=== PATIENT | female | born 1940 | race Caucasian/White ===

== ENCOUNTER 2018-09-15 16:36 | Emergency (ER) | payer OTHER ==
--- OUTSIDE RECORDS SUMMARY | 2018-09-15 16:39 | XMS REPORT | Clinical Summary ---
:1940 Author Organization [facility] Address [address] [place] [address] Care Team Providers Name Role Phone Ez Moreno MD Primary Care Provider Allergies Active Allergy Reactions Severity Noted Date Comments No Known Drug Allergies 01/01/2016 Medications Medication Sig Dispensed Refills Start Date End Date Status FOLIC 1 po qd 0 Active ACID/MULTIVIT-MIN/ LUTEIN (CENTRUM SILVER ORAL) VIT A/VIT C/VIT bid 0 Active E/ZINC/COPPER (PRESERVISION AREDS ORAL) FLUZONE HIGH-DOSE Inject 1 Dose 0 12/09/2015 Active 2016-17, PF, into the vaccine shoulder, thigh, or buttocks Once PRN. TO BE ADMINISTERED BY PHARMACIST FOR IMMUNIZATION levothyroxine Take 50 mcg by 0 10/08/2017 Active (SYNTHROID, mouth daily. LEVOXYL) 50 mcg tablet donepezil Take 1 tablet (10 90 tablet 2 02/27/2018 Active (ARICEPT) 10 MG mg total) by tabletIndications: mouth every Late onset evening. Alzheimer's disease without behavioral disturbance turmeric (CURCUMIN Take 599 mg by 0 Active MISC) mouth daily. propranolol Take 1 tablet (10 90 tablet 7 05/25/2018 05/25/19 Active (INDERAL) 10 MG mg total) by 20 tabletIndications: mouth take as Late onset directed (Half a Alzheimer's tablet in the disease with morning. Can have behavioral another half in disturbance the afternoon if needed.). memantine TAKE 1 TABLET (5 180 tablet 1 06/30/2018 Active (NAMENDA) 5 MG MG TOTAL) BY tablet MOUTH 2 (TWO) TIMES A DAY. memantine Take 1 tablet (5 180 tablet 1 04/24/2017 12/30/19 Discontinued (NAMENDA) 5 MG mg total) by 18 tablet mouth 2 (two) times a day. donepezil TAKE 1 TABLET (10 90 tablet 2 06/05/2017 02/26/20 Discontinued (ARICEPT) 10 MG MG TOTAL) BY 18 tabletIndications: MOUTH EVERY Late onset EVENING. Alzheimer's disease without behavioral disturbance memantine TAKE 1 TABLET (5 180 tablet 1 01/02/2018 06/30/19 Discontinued (NAMENDA) 5 MG MG TOTAL) BY 19 tablet MOUTH 2 (TWO) TIMES A DAY. 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 (Primary Dx) 05/11/2018 Telephone Denise Nunez RN 02/25/2018 Refill Neurology Denise Nunez Late onset Alzheimer's RN disease without behavioral disturbance 12/29/2017 Refill Neurology Eric Singleton MD 10/20/2017 Office Visit Neurology Eric Singleton Late onset Alzheimer 's MD disease without behavioral disturbance (Primary Dx) after 09/14/2017 Family History Medical History Relation Name Comments Dementia Father Alzheimer's disease Maternal Grandmother Stroke Mother Alzheimer's disease Paternal Aunt Relation Name Status Comments Father (Age 91) Maternal Grandmother Mother (Age 90) Paternal Aunt Social History Tobacco Use Types Packs/Day Years Used Date Former Smoker Smokeless Tobacco: Never Used Alcohol Use Drinks/Week oz/Week Comments Yes 3 glasses of wine per day(goblets) Sex Assigned at Date Recorded Not on file Job Start Date Occupation Industry Not on file Not on file Not on file Travel History Travel Start Travel End No recent travel history available. Last Filed Vital Signs Vital Sign Reading Time Taken Blood Pressure 135/78 05/25/2018 8:23 AM CDT Pulse 71 05/25/2018 8:23 AM CDT Temperature - - Respiratory Rate 18 10/20/2017 9:36 AM CDT Oxygen Saturation - - Inhaled Oxygen Concentration - - Weight 44.9 kg (98 lb 14.4 oz) 05/25/2018 8:23 AM CDT Height 147.3 cm (4' 10") 05/25/2018 8:23 AM CDT Body Mass Index 20.67 05/25/2018 8:23 AM CDT Plan of Treatment Date Type Specialty Care Team Description 05/31/2019 Office Visit Neurology Eric Singleton MD [address] [facility] [address] [place] [address] Health Maintenance Due Date Last Done Comments SHINGLES VACCINES (#1) 1989 65+ PNEUMOCOCCAL VACCINE (1 of 2 - PCV13) 2004 INFLUENZA VACCINE 10/08/2018 11/03/2014, 11/22/2013 Results Not on fileafter 09/14/2017 [phone] [id number] (Work) Advance Directives Patient has advance care planning documents on file. For more information, please contact:Aron Gee[address] [place] [address]
[2018-09-15] MEDS ORDERED: LIDOCAINE VISCOUS 2% SOLN 15 ML UDC ONE (17:23)
[2018-09-15] MEDS ORDERED: TETANUS & DIPHTHERIA TOX,ADULT 0.5 ML VIAL ONE (17:53)
[2018-09-15] MEDS ORDERED: HYDROCODONE/APAP 5/325 MG TAB ONE (17:53)
--- NOTE | 2018-09-15 19:03 | EDPHYS ---
Physician Documentation [facility] Name: Greta Ortiz Age: 78 yrs Sex: Female : 1940 Arrival Date: 09/15/2018 Time: 16:41 Bed 5 Private MD: Joey Fuchs V ED Physician Bossman Patel HPI: 09/15 18:38 This 78 yrs old Female presents to ER via Ambulatory with complaints of Fall gs Injury. 18:38 Details of fall: The patient fell from an upright position. Onset: The symptoms/episode gs began/occurred acutely, just prior to arrival. Associated injuries: The patient sustained right cedeno and left cedeno. Severity of symptoms: At their worst the symptoms were moderate, in the emergency department the symptoms are unchanged. The patient has not experienced similar symptoms in the past. The patient has not recently seen a physician. Historical: - Allergies: 16:47 No Known Allergies; bp - Home Meds: 16:47 memantine 5 mg oral tab 1 tabs 2 times per day [Active]; donepezil 5 mg oral TbDL 1 tab bp once daily [Active]; levothyroxine 50 mcg tab 1 tab once daily [Active]; - PMHx: 16:47 Alzheimers; bp - Immunization history:: Adult Immunizations up to date. - Social history:: Smoking status: Patient/guardian denies using tobacco. - Ebola Screening: : No symptoms or risks identified at this time. ROS: 18:38 All other systems are negative. gs Exam: 18:38 Head/Face: Normocephalic, atraumatic. Eyes: Pupils equal round and reactive to light, gs extra-ocular motions intact. Lids and lashes normal. Conjunctiva and sclera are non-icteric and not injected. Cornea within normal limits. Periorbital areas with no swelling, redness, or edema. ENT: Nares patent. No nasal discharge, no septal abnormalities noted. Tympanic membranes are normal and external auditory canals are clear. Oropharynx with no redness, swelling, or masses, exudates, or evidence of obstruction, uvula midline. Mucous membranes moist. Neck: Trachea midline, no thyromegaly or masses palpated, and no cervical lymphadenopathy. Supple, full range of motion without nuchal rigidity, or vertebral point tenderness. No Meningismus. Chest/axilla: Normal chest wall appearance and motion. Nontender with no deformity. No lesions are appreciated. Cardiovascular: Regular rate and rhythm with a normal S1 and S2. No gallops, murmurs, or rubs. Normal PMI, no JVD. No pulse deficits. Respiratory: Lungs have equal breath sounds bilaterally, clear to auscultation and percussion. No rales, rhonchi or wheezes noted. No increased work of breathing, no retractions or nasal flaring. Abdomen/GI: Soft, non-tender, with normal bowel sounds. No distension or tympany. No guarding or rebound. No evidence of tenderness throughout. Back: No spinal tenderness. No costovertebral tenderness. Full range of motion. Neuro: Awake and alert, GCS 15, oriented to person, place, time, and situation. Cranial nerves II-XII grossly intact. Motor strength 5/5 in all extremities. Sensory grossly intact. Cerebellar exam normal. Normal gait. 18:38 Constitutional: The patient appears alert, awake. 18:38 Musculoskeletal/extremity: Pulses: are normal with no appreciated deficits. 18:38 Skin: injury, avulsion(s), A moderate sized of the right cedeno and left cedeno. Vital Signs: 16:47 BP 131 / 78; Pulse 64; Resp 18; Temp 98; Pulse Ox 99% ; Weight 58.97 kg; bp 17:30 BP 145 / 76; Pulse 66; Resp 15; Pulse Ox 99% on R/A; hj 18:30 BP 138 / 77; Pulse 65; Resp 16; Temp 98; Pulse Ox 99% ; hj MDM: 17:06 Patient medically screened. 18:38 Differential diagnosis: contusion, fracture, laceration. Data reviewed: vital signs, gs nurses notes. Counseling: I had a detailed discussion with the patient and/or guardian regarding: the historical points, exam findings, and any diagnostic results supporting the discharge/admit diagnosis, radiology results, the need for outpatient follow up. Response to treatment: the patient's symptoms have markedly improved after treatment, and as a result, I will discharge patient. 19:11 ED course: POSSIBLE ABNORMALITY TIBIA PLATEAU NO EFFUSION WT BEARING NORMAL CLINICALLY gs NO FRACTURE. 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 Exp: rv 05/30/2020. Lot #: [id number]. } Route: IM; Site: right deltoid; 18:52 Follow up: Response: No adverse reaction 17:50 Drug: [place] 5 mg-325 mg 1 tabs Route: PO; rv 18:52 Follow up: Response: No adverse reaction Disposition: 09/15/18 19:03 Discharged to Home. Impression: Laceration without foreign body, left lower leg, Laceration without foreign body, right lower leg. - Condition is Stable. - Discharge Instructions: Laceration Care, Adult. - Medication Reconciliation Form, Thank You Letter, Antibiotic Education, Prescription Opioid Use form. - Follow up: Private Physician; When: 2 - 3 days; Reason: Re-evaluation by your physician. Signatures: Dispatcher [employer] EDSandy Main RN RN bb Starr, Gregory, MD MD Isreal Mckeon RN RN bp Vicente, Ronaldo, RN RN Gama Guadarrama RN Corrections: (The following items were deleted from the chart) 19:21 19:03 09/15/2018 19:03 Discharged to Home. Impression: Laceration without foreign body, bb left lower leg; Laceration without foreign body, right lower leg. Condition is Stable. Forms are Medication Reconciliation Form, Thank You Letter, Antibiotic Education, Prescription Opioid Use. Follow up: Private Physician; When: 2 - 3 days; Reason: Re-evaluation by your physician.
--- NOTE | 2018-09-15 19:03 | ER ---
Nurse's Notes [facility] Name: Greta Ortiz Age: 78 yrs Sex: Female : 1940 Arrival Date: 09/15/2018 Time: 16:41 Bed 5 Private MD: Joey Fuchs V Diagnosis: Laceration without foreign body, left lower leg;Laceration without foreign body, right lower leg Presentation: 09/15 16:45 Presenting complaint: states: POSSIBLE FALL AT HOME, BILATERAL KNEE AND R ELBOW bp INJURY. Transition of care: patient was not received from another setting of care. Onset of symptoms was September 15, 2018 at 16:00. Risk Assessment: Do you want to hurt yourself or someone else? Patient reports no desire to harm self or others. Initial Sepsis Screen: Does the patient meet any 2 criteria? No. Patient's initial sepsis screen is negative. Does the patient have a suspected source of infection? No. Patient's initial sepsis screen is negative. Care prior to arrival: None. 16:45 Method Of Arrival: Ambulatory bp 16:45 Acuity: HOPE 3 bp Historical: - Allergies: 16:47 No Known Allergies; bp - Home Meds: 16:47 memantine 5 mg oral tab 1 tabs 2 times per day [Active]; donepezil 5 mg oral TbDL 1 tab bp once daily [Active]; levothyroxine 50 mcg tab 1 tab once daily [Active]; - PMHx: 16:47 Alzheimers; bp - Immunization history:: Adult Immunizations up to date. - Social history:: Smoking status: Patient/guardian denies using tobacco. - Ebola Screening: : No symptoms or risks identified at this time. Screenin:47 Abuse screen: Denies threats or abuse. Denies injuries from another. Nutritional rv screening: No deficits noted. Tuberculosis screening: No symptoms or risk factors identified. Fall Risk None identified. Assessment: 17:45 General: Appears in no apparent distress. comfortable, Behavior is calm, cooperative. rv Pain: Complains of pain in right arm, right leg and left leg. Neuro: Level of Consciousness is awake, alert, obeys commands, Oriented to person, place, time, situation. Cardiovascular: Patient's skin is warm and dry. Respiratory: Airway is patent. GI: No signs and/or symptoms were reported involving the gastrointestinal system. : No signs and/or symptoms were reported regarding the genitourinary system. EENT: No signs and/or symptoms were reported regarding the EENT system. Derm: Wound noted right elbow, right cedeno and left cedeno. Musculoskeletal: No signs and/or symptoms reported regarding the musculoskeletal system. 18:30 Reassessment: Patient appears in no apparent distress at this time. Patient and/or rv family updated on plan of care and expected duration. Pain level reassessed. Patient is alert, oriented x 3, equal unlabored respirations, skin warm/dry/pink. 19:19 Reassessment: Patient and/or family updated on plan of care and expected duration. Pain bb level reassessed. Patient is alert, oriented x 3, equal unlabored respirations, skin warm/dry/pink. bandage to left lower leg clean, dry and intact, pt and family verbalized understanding of and agree to plan of care discharge instructions given. Pt ambulated with steady gait to exit accompanied by family. Vital Signs: 16:47 BP 131 / 78; Pulse 64; Resp 18; Temp 98; Pulse Ox 99% ; Weight 58.97 kg; bp 17:30 BP 145 / 76; Pulse 66; Resp 15; Pulse Ox 99% on R/A; hj 18:30 BP 138 / 77; Pulse 65; Resp 16; Temp 98; Pulse Ox 99% ; hj ED Course: 16:41 Patient arrived in ED. mr 16:41 Joey Fuchs MD is Private Physician. mr 16:46 Triage completed. bp 16:48 Arm band placed on right wrist. bp 16:53 Reyes Brown RN is Primary Nurse. rv 16:58 Bossman Patel MD is Attending Physician. gs 17:39 Tib Fib Right XRAY In Process Unspecified. EDMS 17:39 Tib Fib Left XRAY In Process Unspecified. EDMS 17:46 Wound care: to abrasion, located on right cedeno and left cedeno and right elbow was rv cleaned with Hibiclens, debrided using NS irrigated with normal saline, dressed with 4X4s, Patient tolerated well. 17:48 Patient has correct armband on for positive identification. Bed in low position. Call rv light in reach. Side rails up X 1. Adult w/ patient. Pulse ox on. NIBP on. 18:52 No provider procedures requiring assistance completed. Patient did not have IV access rv during this emergency room visit. 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 Exp: rv 05/30/2020. Lot #: [id number]. } Route: IM; Site: right deltoid; 18:52 Follow up: Response: No adverse reaction 17:50 Drug: [place] 5 mg-325 mg 1 tabs Route: PO; rv 18:52 Follow up: Response: No adverse reaction Outcome: 18:52 Condition: stable rv 19:03 Discharge ordered by . rosa 19:20 Discharged to home ambulatory, with family. bb 19:20 Discharge instructions given to patient, family, Instructed on discharge instructions, follow up and referral plans. wound care, Demonstrated understanding of instructions, follow-up care, wound care. 19:21 Patient left the ED. bb Signatures: Dispatcher [employer] EDGA BelleAlia mr Sandy Hankins RN RN Gama Paul RN RN Bossman Patel MD MD gs Peltier, Brian, Reyes Rene RN, CHIDI RN rv
--- NOTE | 2018-09-15 19:06 | RAD REPORT ---
EXAM DESCRIPTION: RAD - Tib Fib Right - 09/15/2018 5:38 pm CLINICAL HISTORY: Fall, leg pain COMPARISON: None. FINDINGS: No gross fracture deformity seen. However, there are changes to the lateral tibial plateau questionable for fracture. Fibula is intact. Distal femur is intact. No patella displacement. Joint effusion at the knee cannot be assessed. There is no dislocation or periosteal reaction noted. No pat hologic bone process. No foreign body or other soft tissue abnormality. IMPRESSION: Questionable lateral tibial plateau fracture.
--- NOTE | 2018-09-15 19:06 | RAD REPORT ---
EXAM DESCRIPTION: RAD - Tib Fib Left - 09/15/2018 5:38 pm CLINICAL HISTORY: Fall, leg pain COMPARISON: None. FINDINGS: No fracture is identified. There is no dislocation or periosteal reaction noted. No acute or suspicious bony finding. No foreign body or other soft tissue abnormality. IMPRESSION: Negative left tibia & fibula examination.
[2018-09-15 19:27] VITALS: TEMP 98; O2SAT 99
[2018-09-15 19:30] VITALS: BP 138/77
== END 2018-09-15 19:21 | disposition home or self-care (01) ==
LOC: ER 16:36
DX: S81.811A Laceration without foreign body, right lower leg, initial encounter (principal); G30.9 Alzheimer's disease, unspecified; F02.80 Dementia in other diseases classified elsewhere, unspecified severity, without behavioral disturbance, psychotic disturbance, mood disturbance, and anxiety; W18.39XA Other fall on same level, initial encounter; Y93.9 Activity, unspecified; Y92.9 Unspecified place or not applicable; Z23 Encounter for immunization
CPT/HCPCS: 90471; 90714; 99284

== ENCOUNTER 2019-02-12 16:22 | Emergency (ER) | payer OTHER ==
[2019-02-12] MEDS ORDERED: Mastisol Adhesive Liq ONE (16:59)
[2019-02-12] MEDS ORDERED: LIDOCAINE 1% MPF 5 ML VIAL ONE (16:59)
--- NOTE | 2019-02-12 18:04 | ER ---
Nurse's Notes [facility] Name: Greta Ortiz Age: 78 yrs Sex: Female : 1940 Arrival Date: 02/12/2019 Time: 16:24 Bed 24 Private MD: Joey Fuchs V Diagnosis: Laceration to Dorsum of Left Hand Presentation: 02/12 16:41 Presenting complaint: Significant other states: pt has hx of Alzheimer's, got out of the house, walked about 1/2 mile and fell, pt has skin tear, puncture to aysha hands, was told she may need an xray and stitches, was seen at [facility] urgent [facility]. Transition of care: patient was not received from another setting of care. Complicating Factors: There are no complicating factors for this patient. Onset of symptoms was February 12, 2019. Risk Assessment: Do you want to hurt yourself or someone else? Patient reports no desire to harm self or others. Initial Sepsis Screen: Does the patient meet any 2 criteria? No. Patient's initial sepsis screen is negative. Does the patient have a suspected source of infection? No. Patient's initial sepsis screen is negative. Care prior to arrival: Bleeding of injury controlled. Injury dressed. 16:41 Method Of Arrival: Ambulatory iw 16:41 Acuity: HOPE 4 iw Historical: - Allergies: 16:44 No Known Allergies; iw - Home Meds: 16:44 donepezil 5 mg Oral TbDL 1 tab once daily [Active]; levothyroxine 50 mcg tab 1 tab once iw daily [Active]; memantine 5 mg Oral tab 1 tabs 2 times per day [Active]; - PMHx: 16:44 Alzheimers; Hypothyroidism; iw - PSHx: 16:44 Lumpectomy; iw - Immunization history:: Adult Immunizations up to date. - Social history:: Smoking status: Patient/guardian denies using tobacco. - Ebola Screening: : Patient negative for fever greater than or equal to 101.5 degrees Fahrenheit, and additional compatible Ebola Virus Disease symptoms Patient denies exposure to infectious person Patient denies travel to an Ebola-affected area in the 21 days before illness onset No symptoms or risks identified at this time. Screenin:52 Abuse screen: Denies threats or abuse. Denies injuries from another. Nutritional bp screening: No deficits noted. Tuberculosis screening: No symptoms or risk factors identified. Fall Risk Fall in past 12 months (25 points). Secondary diagnosis (15 points) Alzheimer's, dementia, No IV (0 pts). Ambulatory Aid- None/Bed Rest/Nurse Assist (0 pts). Gait- Normal/Bed Rest/Wheelchair (0 pts) Mental Status- Overestimates/Forgets Limitations (15 pts.). Total Prasad Fall Scale indicates High Risk Score (45 or more points). Fall prevention measures have been instituted. Side Rails Up X 2 Placed Close to Nursing Station Frequent Obs/Assessments Occuring Family Present and informed to notify staff if the need to leave the bedside As available patient and family educated on Fall Prevention Program and Strategies. Assessment: 16:45 General: SEE TRIAGE NOTE. Pain: Denies pain. Musculoskeletal: Circulation, motion, and bp sensation intact. Range of motion: intact in all extremities. Injury Description: Laceration sustained to left hand is jagged, 0.5 to 2.5 cm long, not bleeding, is bleeding a small amount. 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 bp 18:42 Reassessment: SPLINT CANCELLED AFTER RAD C/S. PT D/C HOME AMBULATORY WITH FAMILY, DX bp WITH LACERATION. Vital Signs: 16:44 BP 120 / 75; Pulse 78; Resp 16; Temp 98.2; Pulse Ox 100% on R/A; Weight 44.45 kg (R); iw Pain 5/10; 18:42 BP 131 / 78; Pulse 85; Resp 17; Temp 98.3; Pulse Ox 100% ; bp ED Course: 16:24 Patient arrived in ED. mr 16:25 Joey Fuchs MD is Private Physician. mr 16:43 Triage completed. iw 16:44 Arm band placed on. iw 16:50 Lencho Gonzalez FNP-C [facility]. la1 16:50 Isai Zavala MD is Attending Physician. la1 16:50 Isreal Mckeon, CHIDI is Primary Nurse. bp 17:45 Wound care: to laceration located on left hand and dorsal aspect of right forearm was bp dressed with Kerlix, Patient tolerated well. 17:52 Patient has correct armband on for positive identification. Bed in low position. Call bp light in reach. Side rails up X2. 18:04 Hand Left 3 View XRAY In Process Unspecified. EDMS 18:04 Forearm Right XRAY In Process Unspecified. EDMS 18:42 No provider procedures requiring assistance completed. Patient did not have IV access bp during this emergency room visit. Administered Medications: 16:58 Drug: Lidocaine (1 %) 5 mg {Note: AT B/S FOR STEELWORKER.} Route: Infiltration; bp Outcome: 18:03 Discharge ordered by MD. la1 18:38 Discharge ordered by MD. la1 18:44 Discharged to home ambulatory, with family. bp 18:44 Condition: stable 18:44 Discharge instructions given to family, Instructed on discharge instructions, follow up and referral plans. Demonstrated understanding of instructions, follow-up care. 18:44 Patient left the ED. bp Signatures: Dispatcher [employer] Alia Yeh Irene, RN RN iw Lencho Gonzalez, SUPERVISOR [employer]-C SUPERVISOR [employer]PRINTING [employer]-Cla1 Isreal Mckeon, RN RN bp
--- NOTE | 2019-02-12 18:05 | EDPHYS ---
Physician Documentation [facility] Name: Greta Ortiz Age: 78 yrs Sex: Female : 1940 Arrival Date: 02/12/2019 Time: 16:24 Bed 24 Private MD: Joey Fuchs V ED Physician Isai Zavala HPI: 02/12 16:55 This 78 yrs old Female presents to ER via Ambulatory with complaints of la1 Laceration To Arm, Laceration To Hand. 16:55 The patient has a laceration occurred outdoors. The laceration(s) is(are) located on la1 the left hand and dorsal aspect of right forearm. Onset: The symptoms/episode began/occurred just prior to arrival. Associated signs and symptoms: Pertinent negatives: heavy bleeding. The patient has been recently seen by a physician:. Pt with hx of Alzheimer's and got out of the house, was found outside and had apparently slipped. Historical: - Allergies: 16:44 No Known Allergies; iw - Home Meds: 16:44 donepezil 5 mg Oral TbDL 1 tab once daily [Active]; levothyroxine 50 mcg tab 1 tab once iw daily [Active]; memantine 5 mg Oral tab 1 tabs 2 times per day [Active]; - PMHx: 16:44 Alzheimers; Hypothyroidism; iw - PSHx: 16:44 Lumpectomy; iw - Immunization history:: Adult Immunizations up to date. - Social history:: Smoking status: Patient/guardian denies using tobacco. - Ebola Screening: : Patient negative for fever greater than or equal to 101.5 degrees Fahrenheit, and additional compatible Ebola Virus Disease symptoms Patient denies exposure to infectious person Patient denies travel to an Ebola-affected area in the 21 days before illness onset No symptoms or risks identified at this time. ROS: 16:56 Constitutional: Negative for fever, chills, and weight loss, Eyes: Negative for injury, la1 pain, redness, and discharge, ENT: Negative for injury, pain, and discharge, Neck: Negative for injury, pain, and swelling, Cardiovascular: Negative for chest pain, palpitations, and edema, Respiratory: Negative for shortness of breath, cough, wheezing, and pleuritic chest pain, Abdomen/GI: Negative for abdominal pain, nausea, vomiting, diarrhea, and constipation, MS/Extremity: Negative for injury and deformity. 16:56 Skin: Positive for laceration(s), of the right arm and left hand. Exam: 16:57 Constitutional: This is a well developed, well nourished patient who is awake, alert, la1 and in no acute distress. Head/Face: Normocephalic, atraumatic. Eyes: Pupils equal round and reactive to light, extra-ocular motions intact. Periorbital areas with no swelling, redness, or edema. ENT: Mucous membranes moist. Chest/axilla: Normal chest wall appearance and motion. Nontender with no deformity. No lesions are appreciated. Cardiovascular: Regular rate and rhythm with a normal S1 and S2. No gallops, murmurs, or rubs. Normal PMI, no JVD. No pulse deficits. Respiratory: No increased work of breathing, no retractions or nasal flaring. Skin: Warm, dry with normal turgor. Normal color with no rashes, no lesions, and no evidence of cellulitis. MS/ Extremity: Pulses equal, no cyanosis. Neurovascular intact. Full, normal range of motion. 16:57 Skin: laceration to dorsum of left hand, skin tear to right FA. Vital Signs: 16:44 BP 120 / 75; Pulse 78; Resp 16; Temp 98.2; Pulse Ox 100% on R/A; Weight 44.45 kg (R); iw Pain 5/10; 18:42 BP 131 / 78; Pulse 85; Resp 17; Temp 98.3; Pulse Ox 100% ; bp Laceration: 17:59 Wound Repair of 3cm ( 1.2in ) subcutaneous laceration to Left first web space. la1 Irregularly shaped.. Minimal contamination.. Hemostasis noted.. Distal neuro/vascular/tendon intact. Anesthesia: Local anesthetic administered with 2 mls of 1% lidocaine. Wound prep: Moderate cleansing, Copious irrigation. Skin closed with 3 4-0 Prolene using simple sutures and sterile technique. Patient tolerated well. MDM: 16:50 Patient medically screened. la1 18:07 Differential diagnosis: superficial laceration, vascular injury. Data reviewed: vital la1 signs, nurses notes, radiologic studies, plain films, and as a result, I will discharge patient. Data interpreted: Pulse oximetry: on room air is 100 %. Interpretation: normal. Counseling: I had a detailed discussion with the patient and/or guardian regarding: the historical points, exam findings, and any diagnostic results supporting the discharge/admit diagnosis, radiology results, the need for outpatient follow up, a family practitioner, a orthopedic surgeon. 02/12 16:54 Order name: Hand Left 3 View XRAY; Complete Time: 18:34 la1 02/12 16:54 Order name: Forearm Right XRAY; Complete Time: 18:34 la1 02/12 16:54 Order name: Suture Tray at Bedside; Complete Time: 16:59 la1 02/12 16:54 Order name: Wound Care; Complete Time: 17:50 la1 Administered Medications: 16:58 Drug: Lidocaine (1 %) 5 mg {Note: AT B/S FOR BLOCKMASON.} Route: Infiltration; bp Disposition: 02/13 07:23 Co-signature as Attending Physician, Isai Zavala MD I agree with the assessment and kdr plan of care. Disposition: 02/12/19 18:38 Discharged to Home. Impression: Laceration to Dorsum of Left Hand. - Condition is Stable. - Discharge Instructions: Laceration Care, Adult, Skin Tear Care. - Medication Reconciliation Form, Thank You Letter form. - Follow up: Private Physician; When: 7 - 10 days; Reason: Recheck today's complaints, Re-evaluation by your physician. - Problem is new. - Symptoms have improved. Signatures: Dispatcher [employer] EDMS Isai Zavala MD MD [facility] Angeli Ott RN RN Lencho Gonzalez, ECONOMIC ANALYST-C ECONOMIC ANALYST-Cla1 Isreal Mckeon RN RN bp Corrections: (The following items were deleted from the chart) 02/12 18:07 18:03 02/12/2019 18:03 Discharged to Home. Impression: Laceration to Dorsal Aspect of la1 Left Hand. Condition is Stable. Forms are Medication Reconciliation Form, Thank You Letter, Antibiotic Education, Prescription Opioid Use. Follow up: Private Physician; When: 7 - 10 days; Reason: Wound Recheck, Recheck today's complaints, Re-evaluation by your physician. Problem is new. Symptoms have improved. la1 18:38 18:07 02/12/2019 18:03 Discharged to Home. Impression: Laceration to Dorsal Aspect of la1 Left Hand; Fracture of Right Ulnar Styloid. Condition is Stable. Discharge Instructions: Laceration Care, Adult, Skin Tear Care. Forms are Medication Reconciliation Form, Thank You Letter, Antibiotic Education. Follow up: Private Physician; When: 7 - 10 days; Reason: Wound Recheck, Recheck today's complaints, Re-evaluation by your physician. Problem is new. Symptoms have improved. la1 18:42 18:06 Splint - Ulnar Gutter ordered. la1 18:44 18:38 02/12/2019 18:38 Discharged to Home. Impression: Laceration to Dorsum of Left bp Hand. Condition is Stable. Forms are Medication Reconciliation Form, Thank You Letter, Antibiotic Education, Prescription Opioid Use. Follow up: Private Physician; When: 7 - 10 days; Reason: Recheck today's complaints, Re-evaluation by your physician. Problem is new. Symptoms have improved. la1
--- NOTE | 2019-02-12 18:18 | RAD REPORT ---
EXAM DESCRIPTION: RAD - Forearm Right - 02/12/2019 6:04 pm CLINICAL HISTORY: Fall, arm pain COMPARISON: None. FINDINGS: No fracture is identified. There is no dislocation or periosteal reaction noted. Degenerat terry changes are present at the elbow joint. No foreign body or other soft tissue abnormality. IMPRESSION: Right forearm degenerative change without fracture identifiable.
--- NOTE | 2019-02-12 18:20 | RAD REPORT ---
EXAM DESCRIPTION: RAD - Hand Left 3 View - 02/12/2019 6:04 pm CLINICAL HISTORY: Fall, left hand pain COMPARISON: None. FINDINGS: No fracture, dislocation or periosteal reaction noted. No foreign body or other soft tissu e abnormality. Radiocarpal joint space narrowing present. Bones are osteopenic overall. Degenerative changes are present at the ulna styloid with triangular fibrocartilage calcification present. Mild christophe int space narrowing of the first- fourth MCP joints. Mild IP joint space narrowing. No erosive or spu rring changes. IMPRESSION: Osteopenic and degenerative changes of the left hand and left wrist. No acute finding.
[2019-02-12 20:45] VITALS: O2SAT 100
[2019-02-12 20:47] VITALS: BP 131/78; TEMP 98.3
== END 2019-02-12 18:44 | disposition home or self-care (01) ==
LOC: ER 16:22
PROC: 0JQK0ZZ Repair Left Hand Subcutaneous Tissue and Fascia, Open Approach (ICD-10-PCS; principal; 2019-02-12)
DX: S61.512A Laceration without foreign body of left wrist, initial encounter (principal); W45.8XXA Other foreign body or object entering through skin, initial encounter; Y93.9 Activity, unspecified; Y92.89 Other specified places as the place of occurrence of the external cause; E03.9 Hypothyroidism, unspecified; G30.9 Alzheimer's disease, unspecified; F02.80 Dementia in other diseases classified elsewhere, unspecified severity, without behavioral disturbance, psychotic disturbance, mood disturbance, and anxiety
CPT/HCPCS: 99283

== ENCOUNTER 2019-05-13 | Emergency (ER) | payer OTHER ==
--- NOTE | 2019-05-13 18:48 | EDPHYS ---
Physician Documentation [facility] Name: Greta Ortiz Age: 79 yrs Sex: Female : 1940 Arrival Date: 05/13/2019 Time: 18:20 Bed 27 Private MD: Joey Fuchs V ED Physician Isai Zavala HPI: 05/12 18:52 This 79 yrs old Female presents to ER via Ambulatory with complaints of Skin kb Tear(s). 18:56 The patient has a laceration related to: sat next to her and thinks his wallet kb or phone caused the tear occurred at home, and there are no complicating factors. The injury was accidental. The laceration(s) is(are) located on the right forearm. Onset: The symptoms/episode began/occurred just prior to arrival. Associated signs and symptoms: The patient has no apparent associated signs or symptoms. The patient has not experienced similar symptoms in the past. The patient has not recently seen a physician. Historical: - Allergies: 18:28 No Known Allergies; ss - Home Meds: 18:28 levothyroxine 50 mcg tab 1 tab once daily [Active]; lactulose 10 gram/15 mL (15 mL) ss Oral soln [Active]; Propranolol Oral [Active]; longvida [Active]; - PMHx: 18:28 Alzheimers; Hypothyroidism; ss - PSHx: 18:28 Lumpectomy; ss - Immunization history:: Last tetanus immunization: up to date. - Social history:: Smoking status: Patient denies any tobacco usage or history of. ROS: 18:51 Constitutional: Negative for fever, chills, and weight loss, Cardiovascular: Negative kb for chest pain, palpitations, and edema, Respiratory: Negative for shortness of breath, cough, wheezing, and pleuritic chest pain, Abdomen/GI: Negative for abdominal pain, nausea, vomiting, diarrhea, and constipation, Back: Negative for injury and pain, MS/Extremity: Negative for injury and deformity, Neuro: Negative for headache, weakness, numbness, tingling, and seizure. 18:51 Skin: Positive for skin tear. Exam: 18:50 Constitutional: This is a well developed, well nourished patient who is awake, alert, kb and in no acute distress. Head/Face: Normocephalic, atraumatic. Chest/axilla: Normal chest wall appearance and motion. Nontender with no deformity. No lesions are appreciated. Cardiovascular: Regular rate and rhythm with a normal S1 and S2. No gallops, murmurs, or rubs. Normal PMI, no JVD. No pulse deficits. Respiratory: Lungs have equal breath sounds bilaterally, clear to auscultation and percussion. No rales, rhonchi or wheezes noted. No increased work of breathing, no retractions or nasal flaring. Abdomen/GI: Soft, non-tender, with normal bowel sounds. No distension or tympany. No guarding or rebound. No evidence of tenderness throughout. MS/ Extremity: Pulses equal, no cyanosis. Neurovascular intact. Full, normal range of motion. Neuro: Awake and alert, GCS 15, oriented to person, place, time, and situation. Cranial nerves II-XII grossly intact. Motor strength 5/5 in all extremities. Sensory grossly intact. Cerebellar exam normal. Normal gait. 18:50 Skin: injury, skin tear (golfball sized) to right forearm. Vital Signs: 18:25 BP 121 / 86; Pulse 82; Resp 17; Temp 98.0(TE); Pulse Ox 98% on R/A; Weight 44.45 kg; ss Height 4 ft. 10 in. (147.32 cm); Pain 0/10; 18:25 Body Mass Index 20.48 (44.45 kg, 147.32 cm) ss MDM: 18:30 Patient medically screened. kb 18:51 Data reviewed: vital signs, nurses notes. Data interpreted: Pulse oximetry: on room air kb is 98 %. Interpretation: normal. Counseling: I had a detailed discussion with the patient and/or guardian regarding: the historical points, exam findings, and any diagnostic results supporting the discharge/admit diagnosis, the need for outpatient follow up, a family practitioner, to return to the emergency department if symptoms worsen or persist or if there are any questions or concerns that arise at home. 05/12 18:47 Order name: Wound Care; Complete Time: 18:53 kb Administered Medications: No medications were administered Disposition: 05/13 07:05 Co-signature as Attending Physician, Isai Zavala MD I agree with the assessment and kdr plan of care. Disposition: 05/13/19 18:47 Discharged to Home. Impression: Skin tear to right forearm. - Condition is Stable. - Discharge Instructions: Skin Tear Care, [id number]. - Medication Reconciliation Form, Thank You Letter, Antibiotic Education, Prescription Opioid Use form. - Follow up: Emergency Department; When: As needed; Reason: Worsening of condition. Follow up: Private Physician; When: 2 - 3 days; Reason: Recheck today's complaints, Continuance of care, Re-evaluation by your physician. Signatures: Louann Valentine FNP-C DRE-Isai Franco MD MD kdr Humaira Ackerman RN RN ss Jerrica Hernandez RN RN vc Corrections: (The following items were deleted from the chart) 05/12 19:00 18:47 05/13/2019 18:47 Discharged to Home. Impression: Skin tear to right forearm. vc Condition is Stable. Forms are Medication Reconciliation Form, Thank You Letter, Antibiotic Education, Prescription Opioid Use. Follow up: Emergency Department; When: As needed; Reason: Worsening of condition. Follow up: Private Physician; When: 2 - 3 days; Reason: Recheck today's complaints, Continuance of care, Re-evaluation by your physician. kb
--- NOTE | 2019-05-13 18:48 | ER ---
Nurse's Notes [facility] Name: Greta Ortiz Age: 79 yrs Sex: Female : 1940 Arrival Date: 05/13/2019 Time: 18:20 Bed 27 Private MD: Joey Fuchs V Diagnosis: Skin tear to right forearm Presentation: 05/12 18:25 Chief complaint: Spouse and/or significant other states: skin tear to R forearm that ss occurred 20 minutes ago. No bleeding noted. Coronavirus screen: The patient has NOT traveled to a country currently being monitored by the [facility] within the last 14 days. Proceed with normal triage procedures. Ebola Screen: Patient denies exposure to infectious person. Patient denies travel to an Ebola-affected area in the 21 days before illness onset. Initial Sepsis Screen: Does the patient meet any 2 criteria? No. Patient's initial sepsis screen is negative. Does the patient have a suspected source of infection? No. Patient's initial sepsis screen is negative. Risk Assessment: Do you want to hurt yourself or someone else? Patient reports no desire to harm self or others. 18:25 Method Of Arrival: Ambulatory ss 18:25 Acuity: HOPE 4 ss 18:58 Onset of symptoms was May 13, 2019. vc Triage Assessment: 18:56 General: Appears in no apparent distress. uncomfortable, Behavior is cooperative, vc appropriate for age, anxious. Pain: Complains of pain in right arm. Historical: - Allergies: 18:28 No Known Allergies; ss - Home Meds: 18:28 levothyroxine 50 mcg tab 1 tab once daily [Active]; lactulose 10 gram/15 mL (15 mL) ss Oral soln [Active]; Propranolol Oral [Active]; longvida [Active]; - PMHx: 18:28 Alzheimers; Hypothyroidism; ss - PSHx: 18:28 Lumpectomy; ss - Immunization history:: Last tetanus immunization: up to date. - Social history:: Smoking status: Patient denies any tobacco usage or history of. Screenin:56 Abuse screen: Denies threats or abuse. Nutritional screening: No deficits noted. vc Tuberculosis screening: No symptoms or risk factors identified. Fall Risk None identified. Assessment: 18:50 General: Appears in no apparent distress. uncomfortable, Behavior is calm, cooperative, vc appropriate for age. Pain: Complains of pain in right forearm. Neuro: Level of Consciousness is awake, alert, obeys commands, Oriented to person. Cardiovascular: Patient's skin is warm and dry. Respiratory: Airway is patent Respiratory effort is even, unlabored, Respiratory pattern is regular, symmetrical. GI: No signs and/or symptoms were reported involving the gastrointestinal system. : No signs and/or symptoms were reported regarding the genitourinary system. EENT: No signs and/or symptoms were reported regarding the EENT system. Derm: skin tear to right arm. Musculoskeletal: Circulation, motion, and sensation intact. Range of motion: intact in all extremities. Vital Signs: 18:25 BP 121 / 86; Pulse 82; Resp 17; Temp 98.0(TE); Pulse Ox 98% on R/A; Weight 44.45 kg; ss Height 4 ft. 10 in. (147.32 cm); Pain 0/10; 18:25 Body Mass Index 20.48 (44.45 kg, 147.32 cm) ED Course: 18:20 Patient arrived in ED. mr 18:20 Joey Fuchs MD is Private Physician. mr 18:26 Triage completed. ss 18:28 Arm band placed on right wrist. ss 18:30 Louann Valentine FNP-C [facility]. kb 18:30 Isai Zavala MD is Attending Physician. kb 18:39 Jerrica Hernandez RN is Primary Nurse. vc 18:56 No provider procedures requiring assistance completed. Patient did not have IV access vc during this emergency room visit. Wound care: to skin tear located on right arm was cleaned with Hibiclens, dressed with 4X4s. Administered Medications: No medications were administered Outcome: 18:47 Discharge ordered by . kb 18:57 Discharged to home ambulatory, with significant other. vc 18:57 Condition: good 18:57 Discharge instructions given to significant other, Instructed on discharge instructions, follow up and referral plans. wound care, Demonstrated understanding of instructions, follow-up care, wound care. 19:00 Patient left the ED. vc Signatures: Louann Valentine FNP-C FNP-Bry [place] Belle Humaira Anderson, CHIDI RN Jerrica Hernandez RN RN vc
== END 2019-05-13 19:00 | disposition home or self-care (01) ==
CPT/HCPCS: 99283

== ENCOUNTER 2019-05-23 14:40 | Emergency (ER) | payer OTHER ==
--- NOTE | 2019-05-23 15:36 | RAD REPORT ---
EXAM DESCRIPTION: CT - Head Brain Wo Cont - 05/23/2019 3:22 pm CLINICAL HISTORY: fall, head trauma COMPARISON: No comparisons TECHNIQUE: Axial 5 mm thick images of the head were obtained without IV contrast. All CT scans are performed using dose optimization technique as appropriate and may include automated exposure control or mA/KV adjustment according to patient size. FINDINGS: No intracranial hemorrhage, mass, edema or shift of mid-line structures. No acute infarcti on changes seen. Prominent atrophy and chronic ischemic changes are present. Ventricles are in propor tion to the volume loss. No cortical edema or sulcal effacement. Arterial and physiologic calcificati ons are present. Mastoid air cells and visualized portions of the paranasal sinuses are clear. No acute bony findings. IMPRESSION: Prominent atrophy and chronic ischemic changes are present. No acute intracranial findin gs.
--- NOTE | 2019-05-23 15:42 | ER ---
Nurse's Notes [facility] Name: Greta Ortiz Age: 79 yrs Sex: Female : 1940 Arrival Date: 05/23/2019 Time: 14:42 Bed 6 Private MD: Joey Fuchs V Diagnosis: Superficial injury of head;Avulsion of skin Presentation: 05/22 14:55 Chief complaint: Patient states: skin tear to R knee and R fifth finger that occurred ss 45 minutes ago after falling from a standing position. reports that she hit her head. No injury noted. Coronavirus screen: The patient has NOT traveled to a country currently being monitored by the [facility][NOTE 3] within the last 14 days. Proceed with normal triage procedures. Ebola Screen: Patient denies exposure to infectious person. Patient denies travel to an Ebola-affected area in the 21 days before illness onset. Initial Sepsis Screen: Does the patient meet any 2 criteria? No. Patient's initial sepsis screen is negative. Does the patient have a suspected source of infection? No. Patient's initial sepsis screen is negative. Risk Assessment: Do you want to hurt yourself or someone else? Patient reports no desire to harm self or others. 14:55 Method Of Arrival: Ambulatory ss 14:55 Acuity: HOPE 3 ss 14:55 Care prior to arrival: None. Mechanism of Injury: Fall from standing position. Trauma ss event details: Injury occurred in the [facility], Injury occurred: at home. Injury occurred: May 23, 2019. 14:55 Onset of symptoms was May 23, 2019. sv Trauma Activation: Not Applicable Physician: ED Physician; Name: ; Notified At: ; Arrived At: Physician: General Surgeon; Name: ; Notified At: ; Arrived At: Physician: Radiology; Name: ; Notified At: ; Arrived At: Physician: Respiratory; Name: ; Notified At: ; Arrived At: Physician: Lab; Name: ; Notified At: ; Arrived At: Historical: - Allergies: 14:57 No Known Allergies; ss - PMHx: 14:57 Alzheimers; Hypothyroidism; ss - PSHx: 14:57 Lumpectomy; ss - Immunization history:: Adult Immunizations up to date. - Social history:: Smoking status: Patient denies any tobacco usage or history of. Screenin:11 Abuse screen: Denies threats or abuse. Denies injuries from another. Nutritional sv screening: No deficits noted. Tuberculosis screening: No symptoms or risk factors identified. Fall Risk No fall in past 12 months (0 pts). Secondary diagnosis (15 points) Alzheimer's, No IV (0 pts). Ambulatory Aid- None/Bed Rest/Nurse Assist (0 pts). Gait- Normal/Bed Rest/Wheelchair (0 pts) Mental Status- Overestimates/Forgets Limitations (15 pts.). Total Prasad Fall Scale indicates Low Risk Score (25-44 pts). Fall prevention measures have been instituted. Side Rails Up X 2 Placed close to Nursing Station Frequent Obs/Assesments occuring Family Present and informed to notify staff if they need to leave bedside As available Patient and Family Educated on Fall Prevention Program and strategies. Primary Survey: 14:55 NO uncontrolled hemorrhage observed. A: The patient is alert. Airway: patent, No sv supplemental oxygen in use on arrival. Oral cavity: clear, Trachea midline. Breathing/Chest: Respiratory pattern: regular, Respiratory effort: spontaneous, unlabored, Chest inspection: symmetrical rise and fall of the chest. Circulation: Pulses: palpable right radial artery, right posterior tibial artery, left radial artery and left posterior tibial artery. Skin color: pink, Skin temperature: warm, dry. Disability Alert. Exposure/Environment: All clothing and personal items were removed. Forensic evidence collection is not deemed to be indicated at this time. Items placed in patient belonging bag. There is no evidence of uncontrolled external bleeding. Obvious injury(ies) are noted at this time: skin tear noted to the right knee A warming method has been applied: A warm blanket has been provided to the patient. 15:47 Reassessment Airway Airway Patent Oxygen No O2 Oral cavity Clear Trachea Midline sv Breathing/Chest Respiratory pattern Regular Respiratory effort Spontaneous Unlabored Chest inspection Symmetrical Circulation Pulses Palpable Color [place] Temperature Warm Dry Disability Alert. Secondary Survey: 14:55 HEENT: No deficits noted. Gastrointestinal: No deficits noted. : No deficits noted. sv No signs and/or symptoms were reported regarding the genitourinary system. Musculoskeletal: No deficits noted. No signs and/or symptoms reported regarding the musculoskeletal system. Injury Description: Skin tears sustained to right knee. Vital Signs: 14:55 BP 119 / 66; Pulse 78; Resp 16; Temp 98.4(TE); Pulse Ox 98% on R/A; ss 15:47 BP 114 / 67; Pulse 74; Resp 16; Temp 98.4; Pulse Ox 99% ; sv Joice Coma Score: 14:55 Eye Response: spontaneous(4). Verbal Response: confused(4). Motor Response: obeys sv commands(6). Total: 14. 15:47 Eye Response: spontaneous(4). Verbal Response: confused(4). Motor Response: obeys sv commands(6). Total: 14. Trauma Score (Adult): 14:55 Eye Response: spontaneous(1); Verbal Response: confused(1); Motor Response: obeys sv commands(2); Systolic BP: > 89 mm Hg(4); Respiratory Rate: 10 to 29 per min(4); Afia Score: 14; Trauma Score: 12 15:47 Eye Response: spontaneous(1); Verbal Response: confused(1); Motor Response: obeys sv commands(2); Systolic BP: > 89 mm Hg(4); Respiratory Rate: 10 to 29 per min(4); Afia Score: 14; Trauma Score: 12 ED Course: 14:42 Patient arrived in ED. rg4 14:42 Joey Fuchs MD is Private Physician. rg4 14:43 [facility] jr8 14:43 Devonte Hidalgo MD is Attending Physician. jr8 14:55 Patient maintains SpO2 saturation greater than 95% on room air. sv 14:55 Thermoregulation: warm blanket given to patient. sv 14:56 Joan Santillan, RN is Primary Nurse. sv 14:57 Triage completed. ss 14:57 Arm band placed on right wrist. ss 14:58 Dressings: Steri strips 1/4 " X 1; [place] X 1; right knee. sv 15:[address] via wheelchair. sv 15:11 Patient has correct armband on for positive identification. Bed in low position. Call sv light in reach. Adult w/ patient. Pulse ox on. NIBP on. Door closed. Head of bed elevated. 15:22 CT completed. Patient tolerated procedure well. Patient moved back from CT. bq 15:22 CT Head Brain wo Cont In Process Unspecified. EDMS 15:41 Joey Fuchs MD is Referral Physician. jr8 15:47 No provider procedures requiring assistance completed. Patient did not have IV access ss during this emergency room visit. Administered Medications: No medications were administered Intake: 14:55 PO: 0ml; Total: 0ml. sv 15:47 PO: 0ml; Total: 0ml. sv Output: 14:55 Urine: 0ml; Total: 0ml. sv 15:47 Urine: 0ml; Total: 0ml. sv Outcome: 15:42 Discharge ordered by . catarina 15:47 Discharged to home ambulatory, with family. ss 15:47 Condition: good 15:47 Discharge instructions given to patient, family, Instructed on discharge instructions, follow up and referral plans. medication usage, wound care, Demonstrated understanding of instructions, follow-up care, medications. 15:47 Patient's length of stay was not longer than 2 hours. sv 15:48 Patient left the ED. ss Signatures: Dispatcher [employer] EDMS Joan Santillan RN RN Nya Bellamy Shelby, RN RN Clay Maier PA PA jr8 Paty Marinelli RN RN Taniya Ribeiro rg4 Corrections: (The following items were deleted from the chart) 14:59 14:55 Acuity: HOPE 5 ss hb 15:00 14:55 Acuity: HOPE 4 hb ss
--- NOTE | 2019-05-23 15:42 | EDPHYS ---
Physician Documentation [facility] Name: Greta Ortiz Age: 79 yrs Sex: Female : 1940 Arrival Date: 05/23/2019 Time: 14:42 Bed 6 Private MD: Joey Fuchs V ED Physician Devonte Hidalgo HPI: 05/22 15:08 This 79 yrs old Female presents to ER via Ambulatory with complaints of Fall jr8 Injury. 15:08 Details of fall: The patient fell from an upright position, while standing. Onset: The jr8 symptoms/episode began/occurred acutely, today. Associated injuries: The patient sustained injury to the head, right hand and right leg. Severity of symptoms: At their worst the symptoms were mild, in the emergency department the symptoms are unchanged. The patient has experienced similar episodes in the past, a few times. The patient has been recently seen by a physician: with different complaint(s). Patient with history of dementia. stated that they were walking. Patient tripped on curb falling onto ground hitting her right hand, knee, and head. Denies LOC. Historical: - Allergies: 14:57 No Known Allergies; ss - PMHx: 14:57 Alzheimers; Hypothyroidism; ss - PSHx: 14:57 Lumpectomy; ss - Immunization history:: Adult Immunizations up to date. - Social history:: Smoking status: Patient denies any tobacco usage or history of. ROS: 15:08 Eyes: Negative for injury, pain, redness, and discharge, ENT: Negative for injury, jr8 pain, and discharge, Neck: Negative for injury, pain, and swelling, Cardiovascular: Negative for chest pain, palpitations, and edema, Respiratory: Negative for shortness of breath, cough, wheezing, and pleuritic chest pain, Abdomen/GI: Negative for abdominal pain, nausea, vomiting, diarrhea, and constipation, Back: Negative for injury and pain, MS/Extremity: Negative for injury and deformity, Neuro: Negative for headache, weakness, numbness, tingling, and seizure. 15:08 Skin: Positive for avulsion, of the right hand and right leg. Small abrasion to right buddhism . Exam: 15:08 Eyes: Pupils equal round and reactive to light, extra-ocular motions intact. Lids and jr8 lashes normal. Conjunctiva and sclera are non-icteric and not injected. Cornea within normal limits. Periorbital areas with no swelling, redness, or edema. ENT: Nares patent. No nasal discharge, no septal abnormalities noted. Tympanic membranes are normal and external auditory canals are clear. Oropharynx with no redness, swelling, or masses, exudates, or evidence of obstruction, uvula midline. Mucous membranes moist. Neck: Trachea midline, no thyromegaly or masses palpated, and no cervical lymphadenopathy. Supple, full range of motion without nuchal rigidity, or vertebral point tenderness. No Meningismus. Cardiovascular: Regular rate and rhythm with a normal S1 and S2. No gallops, murmurs, or rubs. Normal PMI, no JVD. No pulse deficits. Respiratory: Lungs have equal breath sounds bilaterally, clear to auscultation and percussion. No rales, rhonchi or wheezes noted. No increased work of breathing, no retractions or nasal flaring. Abdomen/GI: Soft, non-tender, with normal bowel sounds. No distension or tympany. No guarding or rebound. No evidence of tenderness throughout. Back: No spinal tenderness. No costovertebral tenderness. Full range of motion. Skin: Warm, dry with normal turgor. Normal color with no rashes, no lesions, and no evidence of cellulitis. Neuro: Awake and alert, GCS 15, oriented to person, place, time, and situation. Cranial nerves II-XII grossly intact. Motor strength 5/5 in all extremities. Sensory grossly intact. Cerebellar exam normal. Normal gait. 15:08 Musculoskeletal/extremity: Extremities: grossly normal except: noted in the right knee: small avulsion of skin noted to right knee. Approximately 3 cm in length. No surrounding bruising or swelling noted, noted in the lateral right hand : small avulsive tear noted lateral hand near MCP joint. No other trauma noted , ROM: no acute changes, intact in all extremities, Circulation is intact in all extremities. Sensation intact. 15:08 Head/face: Noted is abrasion(s), that are mild, of the right buddhism. jr8 Vital Signs: 14:55 BP 119 / 66; Pulse 78; Resp 16; Temp 98.4(TE); Pulse Ox 98% on R/A; ss 15:47 BP 114 / 67; Pulse 74; Resp 16; Temp 98.4; Pulse Ox 99% ; sv Afia Coma Score: 14:55 Eye Response: spontaneous(4). Verbal Response: confused(4). Motor Response: obeys sv commands(6). Total: 14. 15:47 Eye Response: spontaneous(4). Verbal Response: confused(4). Motor Response: obeys sv commands(6). Total: 14. Trauma Score (Adult): 14:55 Eye Response: spontaneous(1); Verbal Response: confused(1); Motor Response: obeys sv commands(2); Systolic BP: > 89 mm Hg(4); Respiratory Rate: 10 to 29 per min(4); [place] Score: 14; Trauma Score: 12 15:47 Eye Response: spontaneous(1); Verbal Response: confused(1); Motor Response: obeys sv commands(2); Systolic BP: > 89 mm Hg(4); Respiratory Rate: 10 to 29 per min(4); [place] Score: 14; Trauma Score: 12 MDM: 14:50 Patient medically screened. [facility] 15:08 Data reviewed: vital signs, nurses notes, radiologic studies, CT scan. Data jr8 interpreted: Pulse oximetry: on room air is 98 %. Interpretation: normal. Counseling: I had a detailed discussion with the patient and/or guardian regarding: the historical points, exam findings, and any diagnostic results supporting the discharge/admit diagnosis, the need for outpatient follow up, a family practitioner, to return to the emergency department if symptoms worsen or persist or if there are any questions or concerns that arise at home. ED course: Patient had steri-strips applied to right hand and knee. No other injuries needed to be sutured or stapled . 05/22 15:00 Order name: CT Head Brain wo Cont; Complete Time: 15:41 ss Administered Medications: No medications were administered Disposition: 05/23 09:45 Co-signature as Attending Physician, Devonte Hidalgo MD I agree with the assessment and [facility] plan of care. Chart complete. Disposition: 05/23/19 15:42 Discharged to Home. Impression: Superficial injury of head, Avulsion of skin. - Condition is Stable. - Discharge Instructions: Head Injury, Adult, Deep Skin Avulsion. - Medication Reconciliation Form, Thank You Letter, Antibiotic Education, Prescription Opioid Use form. - Follow up: Joey Fuchs MD; When: 1 week; Reason: Wound Recheck, Recheck today's complaints, Continuance of care, Re-evaluation by your physician. - Problem is new. - Symptoms have improved. Signatures: Dispatcher [employer] EDDevonte Solorio MD MD cha Smirch, Shelby, CHIDI RN ss Clay Maier, PA PA jr8 Corrections: (The following items were deleted from the chart) 05/22 15:32 15:08 Eyes: Pupils equal round and reactive to light, extra-ocular motions intact. Lids jr8 and lashes normal. Conjunctiva and sclera are non-icteric and not injected. Cornea within normal limits. Periorbital areas with no swelling, redness, or edema. ENT: Nares patent. No nasal discharge, no septal abnormalities noted. Tympanic membranes are normal and external auditory canals are clear. Oropharynx with no redness, swelling, or masses, exudates, or evidence of obstruction, uvula midline. Mucous membranes moist. Neck: Trachea midline, no thyromegaly or masses palpated, and no cervical lymphadenopathy. Supple, full range of motion without nuchal rigidity, or vertebral point tenderness. No Meningismus. Cardiovascular: Regular rate and rhythm with a normal S1 and S2. No gallops, murmurs, or rubs. Normal PMI, no JVD. No pulse deficits. Respiratory: Lungs have equal breath sounds bilaterally, clear to auscultation and percussion. No rales, rhonchi or wheezes noted. No increased work of breathing, no retractions or nasal flaring. Abdomen/GI: Soft, non-tender, with normal bowel sounds. No distension or tympany. No guarding or rebound. No evidence of tenderness throughout. Back: No spinal tenderness. No costovertebral tenderness. Full range of motion. Skin: Warm, dry with normal turgor. Normal color with no rashes, no lesions, and no evidence of cellulitis. Neuro: Awake and alert, GCS 15, oriented to person, place, time, and situation. Cranial nerves II-XII grossly intact. Motor strength 5/5 in all extremities. Sensory grossly intact. Cerebellar exam normal. Normal gait. jr8 15:48 15:42 05/23/2019 15:42 Discharged to Home. Impression: Superficial injury of head; ss Avulsion of skin. Condition is Stable. Forms are Medication Reconciliation Form, Thank You Letter, Antibiotic Education, Prescription Opioid Use. Follow up: Joey Fuchs; When: 1 week; Reason: Wound Recheck, Recheck today's complaints, Continuance of care, Re-evaluation by your physician. Problem is new. Symptoms have improved. jr8
[2019-05-23 15:55] VITALS: BP 119/66; TEMP 98.4; O2SAT 98
== END 2019-05-23 15:48 | disposition home or self-care (01) ==
LOC: ER 14:40
DX: S61.401A Unspecified open wound of right hand, initial encounter (principal); S81.001A Unspecified open wound, right knee, initial encounter; W01.198A Fall on same level from slipping, tripping and stumbling with subsequent striking against other object, initial encounter; Y93.01 Activity, walking, marching and hiking; Y92.9 Unspecified place or not applicable; G30.9 Alzheimer's disease, unspecified; F02.80 Dementia in other diseases classified elsewhere, unspecified severity, without behavioral disturbance, psychotic disturbance, mood disturbance, and anxiety
CPT/HCPCS: 70450; 99284

== ENCOUNTER 2019-05-26 18:09 | Emergency (ER) | payer OTHER ==
--- NOTE | 2019-05-26 20:25 | ER ---
Nurse's Notes [facility] Name: Greta Ortiz Age: 79 yrs Sex: Female : 1940 Arrival Date: 05/26/2019 Time: 18:12 Bed 23 Private MD: Joey Fuchs V Diagnosis: Pain in right ankle and joints of right foot Presentation: 05/25 18:22 Chief complaint: Parent and/or Guardian states: reports that when he was ss putting her in bed this evening, he noticed swelling and redness to her R ankle and top of foot. Also reports increased falls and confusion over the past few days. Coronavirus screen: The patient has NOT traveled to a country currently being monitored by the CDC within the last 14 days. Proceed with normal triage procedures. Ebola Screen: Patient denies exposure to infectious person. Patient denies travel to an Ebola-affected area in the 21 days before illness onset. Initial Sepsis Screen: Does the patient meet any 2 criteria? No. Patient's initial sepsis screen is negative. Does the patient have a suspected source of infection? No. Patient's initial sepsis screen is negative. Risk Assessment: Do you want to hurt yourself or someone else? Patient reports no desire to harm self or others. 18:22 Method Of Arrival: Ambulatory ss 18:22 Acuity: HOPE 3 ss 20:01 Onset of symptoms was May 26, 2019 at 18:00. vc Historical: - Allergies: 19:03 No Known Allergies; ss - PMHx: 19:03 Alzheimers; Hypothyroidism; ss - PSHx: 19:03 Lumpectomy; ss - Immunization history:: Adult Immunizations up to date. - Social history:: Smoking status: Patient denies any tobacco usage or history of. Screenin:30 Abuse screen: Denies threats or abuse. Nutritional screening: No deficits noted. vc Tuberculosis screening: No symptoms or risk factors identified. Fall Risk Fall in past 12 months (25 points). Secondary diagnosis (15 points) Alzheimer's, No IV (0 pts). Mental Status- Overestimates/Forgets Limitations (15 pts.). Total Prasad Fall Scale indicates High Risk Score (45 or more points). Assessment: 18:30 General: Appears in no apparent distress. comfortable, Behavior is anxious, listless, vc quiet. Pain: Complains of pain in right leg and dorsum of right foot and right ankle. Neuro: Level of Consciousness is awake, alert, confused, Oriented to person, place. Cardiovascular: Capillary refill < 3 seconds Patient's skin is warm and dry. Respiratory: Airway is patent Respiratory effort is even, unlabored, Respiratory pattern is regular, symmetrical. GI: No signs and/or symptoms were reported involving the gastrointestinal system. : No signs and/or symptoms were reported regarding the genitourinary system. 19:30 Reassessment: No changes from previously documented assessment. Patient and/or family vc updated on plan of care and expected duration. Pain level reassessed. Vital Signs: 18:22 BP 122 / 74; Pulse 60; Resp 17; Temp 97.4(TE); Pulse Ox 98% on R/A; Weight 44.45 kg; ss ED Course: 18:12 Patient arrived in ED. mr 18:13 Joey Fuchs MD is Private Physician. mr 18:26 Devonte Hidalgo MD is Attending Physician. [facility] 18:27 Jerrica Hernandez RN is Primary Nurse. vc 18:55 Lencho Gonzalez FNP-C is [facility]. la1 19:02 Triage completed. ss 19:03 Arm band placed on right wrist. ss 19:30 Patient has correct armband on for positive identification. Bed in low position. Side vc rails up X2. Adult w/ patient. Warm blanket given. 19:41 Ankle Right 3 View XRAY In Process Unspecified. EDMS 19:41 Foot Right 3 View XRAY In Process Unspecified. EDMS 20:00 No provider procedures requiring assistance completed. Patient admitted, IV remains in vc place. Administered Medications: No medications were administered Outcome: 20:24 Discharge ordered by . la1 20:37 Patient left the ED. vc Signatures: Dispatcher [employer] EDMS Devonte Hidalgo MD MD cha Rivera, Alia mr Humaira Ackerman, CHIDI RN Lencho Gonzalez FNP-C FNP-[facility] Hospital[facility]rica Cervantes RN RN
--- NOTE | 2019-05-26 20:25 | EDPHYS ---
Physician Documentation [facility] Name: Greta Ortiz Age: 79 yrs Sex: Female : 1940 Arrival Date: 05/26/2019 Time: 18:12 Bed 23 Private MD: Joey Fuchs V ED Physician Devonte Hidalgo HPI: 05/25 19:24 This 79 yrs old Female presents to ER via Ambulatory with complaints of Ankle la1 Swelling, Leg Swelling, Mood changes. 19:24 The patient presents with pain, that is acute. The complaints affect the right ankle. la1 Onset: The symptoms/episode began/occurred today. Context: The problem was sustained at an unknown location, the patient is able to ambulate. The patient has not experienced similar symptoms in the past. Historical: - Allergies: 19:03 No Known Allergies; ss - PMHx: 19:03 Alzheimers; Hypothyroidism; ss - PSHx: 19:03 Lumpectomy; ss - Immunization history:: Adult Immunizations up to date. - Social history:: Smoking status: Patient denies any tobacco usage or history of. ROS: 19:25 Constitutional: Negative for fever, chills, and weight loss, Neck: Negative for injury, la1 pain, and swelling, Cardiovascular: Negative for chest pain, palpitations, and edema, Respiratory: Negative for shortness of breath, cough, wheezing, and pleuritic chest pain, Abdomen/GI: Negative for abdominal pain, nausea, vomiting, diarrhea, and constipation, Back: Negative for injury and pain. 19:25 Skin: Negative for injury, rash, and discoloration, Neuro: Negative for headache, weakness, numbness, tingling, and seizure. 19:25 MS/extremity: Positive for pain, swelling, of the right ankle and dorsum of right foot. Exam: 19:25 Constitutional: This is a well developed, well nourished patient who is awake, alert, la1 and in no acute distress. Chest/axilla: Normal chest wall appearance and motion. Nontender with no deformity. No lesions are appreciated. Cardiovascular: Regular rate and rhythm with a normal S1 and S2. No gallops, murmurs, or rubs. Normal PMI, no JVD. No pulse deficits. Respiratory: Lungs have equal breath sounds bilaterally, clear to auscultation Skin: Warm, dry with normal turgor. Normal color with no rashes, no lesions, and no evidence of cellulitis. MS/ Extremity: Pulses equal, no cyanosis. Neurovascular intact. Full, normal range of motion. mild swelling to right ankle and dorsum of right foot Vital Signs: 18:22 BP 122 / 74; Pulse 60; Resp 17; Temp 97.4(TE); Pulse Ox 98% on R/A; Weight 44.45 kg; ss MDM: 18:26 Patient medically screened. [facility] 20:24 Data reviewed: vital signs, nurses notes, radiologic studies, I have discussed the la1 patient's presentation/case with the attending Emergency Department Physician; and as a result, I will discharge patient. Data interpreted: Pulse oximetry: on room air is 98 %. Interpretation: normal. Counseling: I had a detailed discussion with the patient and/or guardian regarding: the historical points, exam findings, and any diagnostic results supporting the discharge/admit diagnosis, radiology results, the need for outpatient follow up, a family practitioner, to return to the emergency department if symptoms worsen or persist or if there are any questions or concerns that arise at home. 05/25 19:07 Order name: Ankle Right 3 View XRAY la1 05/25 19:24 Order name: Foot Right 3 View XRAY la1 Administered Medications: No medications were administered Disposition: 05/26 07:35 Co-signature as Attending Physician, Devonte Hidalgo MD I agree with the assessment and [facility] plan of care. Disposition: 05/26/19 20:24 Discharged to Home. Impression: Pain in right ankle and joints of right foot. - Condition is Stable. - Discharge Instructions: Joint Pain, Musculoskeletal Pain, Ankle Pain. - Medication Reconciliation Form, Thank You Letter form. - Follow up: Private Physician; When: 2 - 3 days; Reason: Recheck today's complaints, Continuance of care, Re-evaluation by your physician. - Problem is new. - Symptoms have improved. Signatures: Dispatcher [employer] Devonte Hull MD MD cha Smirch, Shelby, RN RN ss Lencho Gonzalez, FOOD SAFETY SCIENTIST-C FOOD SAFETY SCIENTIST-Cla1 Jerrica Hernandez RN RN vc Corrections: (The following items were deleted from the chart) 05/25 19:41 19:07 Foot Left 3 View+RAD.RAD.BRZ ordered. EDMS EDMS 20:37 20:24 05/26/2019 20:24 Discharged to Home. Impression: Pain in right ankle and joints vc of right foot. Condition is Stable. Forms are Medication Reconciliation Form, Thank You Letter, Antibiotic Education, Prescription Opioid Use. Follow up: Private Physician; When: 2 - 3 days; Reason: Recheck today's complaints, Continuance of care, Re-evaluation by your physician. Problem is new. Symptoms have improved. la1
[2019-05-26 21:05] VITALS: BP 122/74; TEMP 97.4; O2SAT 98
--- NOTE | 2019-05-26 21:39 | RAD REPORT ---
EXAM DESCRIPTION: RAD - Ankle Right 3 View - 05/26/2019 7:41 pm CLINICAL HISTORY: PAINright ankle pain COMPARISON: No comparisons FINDINGS: No fracture, dislocation or periosteal reaction. No joint effusion seen. No joint space na rrowing. Degenerative changes are present at the tibiotalar joint space, mild in degree. Small planta r spur is present. No air or foreign body in the soft tissues. IMPRESSION: No acute bone or joint finding. No significant soft tissue finding.
--- NOTE | 2019-05-26 21:39 | RAD REPORT ---
EXAM DESCRIPTION: RAD - Foot Right 3 View - 05/26/2019 7:41 pm CLINICAL HISTORY: PAINright foot pain and swelling COMPARISON: No comparisonsNone. FINDINGS: No fracture, dislocation or periosteal reaction. Mild right hallux valgus configuration pr esent at the first MTP joint. Soft tissues are prominent along the medial margin. Degenerative change s are present in the first metatarsal head. No erosion or destructive component. The second- fourth metatarsals and phalanges show no acute findings. Small plantar spur is present. T ibiotalar degenerative changes are present. No air or foreign body in the soft tissues. IMPRESSION: No air, foreign body or other soft tissue abnormality identified. Degenerative changes are present as detailed. This is primarily first MTP joint. No acute finding.
== END 2019-05-26 20:37 | disposition home or self-care (01) ==
LOC: ER 18:09
DX: M25.571 Pain in right ankle and joints of right foot (principal); G30.9 Alzheimer's disease, unspecified; F02.80 Dementia in other diseases classified elsewhere, unspecified severity, without behavioral disturbance, psychotic disturbance, mood disturbance, and anxiety
CPT/HCPCS: 99282

== ENCOUNTER 2020-01-24 18:26 | Inpatient (IN) | payer OTHER ==
--- OUTSIDE RECORDS SUMMARY | 2020-01-24 18:28 | XMS REPORT | Clinical Summary ---
:1940 Author Organization [facility] Address [address] [place] [address] Care Team Providers Name Role Phone Kasia Moreno MD Primary Care Provider Allergies Active Allergy Reactions Severity Noted Date Comments No Known Drug Allergies 01/01/2016 Medications Medication Sig Dispensed Refills Start Date End Date Status FOLIC 1 po qd 0 Active ACID/MULTIVIT-MIN/ LUTEIN (CENTRUM SILVER ORAL) VIT A/VIT C/VIT bid 0 Acti ve E/ZINC/COPPER (PRESERVISION AREDS ORAL) FLUZONE HIGH-DOSE Inject 1 Dose 0 12/09/2015 Active 2016-17, PF, into the vaccine shoulder, thigh, or buttocks Once PRN. TO BE ADMINISTERED BY PHARMACIST FOR IMMUNIZATION levothyroxine Take 50 mcg by 0 10/08/2017 Active (SYNTHROID, mouth daily. LEVOXYL) 50 mcg tablet donepezil Take 1 tablet (10 90 tablet 2 02/27/2018 A ctive (ARICEPT) 10 MG mg total) by tabletIndications: mouth every Late onset evening. Alzheimer's disease without behavioral disturbance (HCC) turmeric (CURCUMIN Take 599 mg by 0 Active MISC) mouth daily. memantine TAKE 1 TABLET (5 60 tablet 5 12/15/2018 Ac tive (NAMENDA) 5 MG MG TOTAL) BY tablet MOUTH 2 (TWO) TIMES A DAY. propranoloL TAKE 1 TABLET BY 90 tablet 7 08/06/2019 Active (INDERAL) 10 MG MOUTH EVERY DAY tabletIndications: DIRECTED (1/2 Late onset TABLET IN THE Alzheimer's MORNING & CAN disease with HAVE ANOTHER 1/2 behavioral IN AFTERNOON IF disturbance (HCC) NEEDED) propranolol Take 1 tablet (10 90 tablet 7 05/25/2018 Discontinued (INDERAL) 10 MG mg total) by 0 tabletIndications: mouth take as Late onset directed (Half a Alzheimer's tablet in the disease with morning. Can have behavioral another half in disturbance (HCC) the afternoon if needed.). 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 (HC C) 07/05/2019 Social Work Neurology Ashley Bethea, [place] 06/29/2019 Telephone Neurology Denise Nunez RN 05/17/2019 Travel after 01/23/2019 Surgical History Surgery Date Site/Laterality Comments HYSTERECTOMY In her 40s BREAST LUMPECTOMY In her late 30 s Medical History Medical History Date Comments Breast mass Pain in head or back / Yes Pain in joints Family History Medical History Relation Name Comments Dementia Father Alzheimer's disease Maternal Grandmother Stroke Mother Alzheimer's disease Paternal Aunt Relation Name Status Comments Father (Age 91) Maternal Grandmother Mother (Age 90) Paternal Aunt Social History Tobacco Use Types Packs/Day Years Used Date Former Smoker Smokeless Tobacco: Never Used Alcohol Use Drinks/Week oz/Week Comments Yes 3 glasses of win e per day(goblets) Sex Assigned at Date Recorded Not on file Last Filed Vital Signs Not on file Plan of Treatment Health Maintenance Due Date Last Done Comments SHINGLES VACCINES (#1) 1989 65+ PNEUMOCOCCAL VACCINE (1 of 1 - PPSV23) 2004 INFLUENZA VACCINE 10/09/2019 11/03/2014, 11/22/2013 Results Not on fileafter 01/23/2019 [phone] [id number] (Work) Advance Directives For more information, please contact: [phone] Type Date 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
[2020-01-24] MEDS ORDERED: ZIPRASIDONE MESYLA 20 MG/VIAL IM PRN (18:39)
[2020-01-24] MEDS ORDERED: WATER FOR INJ,STERILE 10 ML IM PRN (18:39)
[2020-01-24] MEDS ORDERED: ONDANSETRON 4 MG/2 ML VIAL IV PRN (18:39)
[2020-01-24] MEDS ORDERED: LOPERAMIDE HCL 2 MG CAPSULE PO PRN (18:39)
[2020-01-24] MEDS ORDERED: DIPHENHYDRAMINE 25 MG TAB/CAP PO PRN (18:39)
[2020-01-24] MEDS ORDERED: POLYETHYL GLY 3350 17 GM/DOSE PO PRN (18:39)
[2020-01-24] MEDS ORDERED: ACETAMINOPHEN 325 MG TABLET PO PRN (18:39)
--- NOTE | 2020-01-24 19:22 | RAD REPORT ---
EXAM DESCRIPTION: RAD - Chest Single View - 01/24/2020 7:16 pm CLINICAL HISTORY: pre op, fall at home Chest pain. COMPARISON: No comparisons FINDINGS: Portable technique limits examination quality. The lungs are grossly clear. The heart is normal in size. No displaced fractures.Mildly tortuous thor acic aorta. IMPRESSION: No acute intrathoracic process suspected.
[2020-01-24 19:25] LABS: Basophils % 0.2 % (0-1.3); Lymphocytes % 8.6 % (15.3-44.8); MPV 7.8 fL (7.6-11.3); RBC Red Blood Cell Count 3.93 M/uL (3.86-4.86)
[2020-01-24 19:28] LABS: Protime INR 0.93
[2020-01-24 19:50] VITALS: BMI 17.0
[2020-01-24 20:04] LABS: Magnesium 2.1 mg/dL (1.8-2.4); Phosphorus 2.3 mg/dL (2.5-4.9); Potassium 3.7 mmol/L (3.5-5.1); Thyroid Stimulating Hormone 0.639 uIU/mL (0.360-3.740)
[2020-01-24] MEDS ORDERED: MELATONIN 5 MG TABLET PO PRN (20:35)
[2020-01-24] MEDS ORDERED: ONDANSETRON 4 MG (ODT) TAB PO PRN (20:45)
[2020-01-24] MEDS: MELATONIN 5 MG TABLET PO SCH (21:00)
[2020-01-24] MEDS: NACHLORIDE 0.45% 1,000 ML IV SCH (22:08)
[2020-01-25 05:54] LABS: Absolute Lymphocytes (CBC) 1.2 K/uL (0.7-4.9); Basophils % 0.3 % (0-1.3); Hematocrit 35.9 % (36.0-45.0); MPV 7.8 fL (7.6-11.3); RBC Red Blood Cell Count 3.93 M/uL (3.86-4.86)
[2020-01-25 06:00] LABS: Urine Appearance CLEAR; Urine Bilirubin NEGATIVE (NEG); Urine Blood NEGATIVE (NEG); Urine Color YELLOW; Urine Glucose NEGATIVE (NEG); Urine Protein NEGATIVE (NEG); Urine Specific Gravity 1.025 (1.005-1.030); Urine Urobilinogen 0.2 mg/dL (0.2-1.0)
[2020-01-25 06:01] LABS: Urine Microscopic Reflex NO UMIC
[2020-01-25 06:14] LABS: Albumin 2.7 g/dL (3.4-5.0); Bilirubin Direct 0.1 mg/dL (0-0.2); Bilirubin Total 0.5 mg/dL (0.2-1.0); Magnesium 2.2 mg/dL (1.8-2.4); Potassium 3.8 mmol/L (3.5-5.1); Protein, Total 5.8 g/dL (6.4-8.2)
[2020-01-25] MEDS ORDERED: KCL 20 MEQ/100 mL IVPB 20 MEQ/100 ML BAG IV SCH (07:45)
[2020-01-25] MEDS: LACTULOSE 20 GM/30 ML UCUP PO SCH (08:58)
[2020-01-25] MEDS: LEVOTHYROXINE SOD 0.05 MG TABLET PO SCH (08:59)
[2020-01-25] MEDS: HYDROMORPHONE HCL 1 MG/ML INJ IV PRN (11:53)
--- NOTE | 2020-01-25 12:19 | RAD REPORT ---
EXAM DESCRIPTION: RAD - Hip Right 2 View - 01/24/2020 10:13 pm CLINICAL HISTORY: Right Hip Fracture TECHNIQUE: Two views of the right hip are submitted. COMPARISON: None available for comparison FINDINGS: Bones: Mildly displaced right femoral neck fracture. Possible fracture of the greater troc hanter. Joints: No dislocation. Soft tissues: Unremarkable IMPRESSION: Right femoral neck and possible greater trochanter fracture. Electronically signed by: Radha Moss MD 01/24/2020 10:25 PM URBAN REDEVELOPMENT SPECIALIST Due to temporary technical issues with the PACS/Fluency reporting system, reports are being signed by the in house radiologists without review as a courtesy to insure prompt reporting. The interpreting radiologist is fully responsible for the content of the report.
--- NOTE | 2020-01-25 17:17 | RAD REPORT ---
EXAM DESCRIPTION: CT - Hip Right Wo Con - 01/25/2020 4:27 pm CLINICAL HISTORY: f/u hip xray Fall, hip pain COMPARISON: Hip Right 2 View dated 01/24/2020 FINDINGS: Subcapital fracture is seen of the proximal right femur with varus angulation. Sclerotic a ppearance to the femoral head articular surface is noted which could indicate AVN. A nondisplaced fra cture component through the greater trochanter is also suspected. Soft tissues surrounding the right hip are mildly prominent. The right sacroiliac joint is intact. IMPRESSION: Subcapital fracture proximal right femur with varus angulation. Nondisplaced greater tro chanteric fracture component is also suspected. 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 All CT scans are performed using dose optimization technique as appropriate and may include automated exposure control or mA/KV adjustment according to patient size.
[2020-01-25] MEDS: NACHLORIDE 0.45% 1,000 ML IV SCH ×2 (17:38→20:43)
--- NOTE | 2020-01-25 18:24 | P.CNS ---
Date of Consult: 01/24/20 Reason for Consult: hip fracture History of Present Illness: patient is completely non responsive. she had a fall, her four her out of the bed it was not witnessed on hospice for Alzheimer, It was revoked by the family afrer her fall. admitted with a femoral neck fracture. Allergies No Known Allergies Allergy (Verified 01/24/20 19:48) Home Medications: Curcumin 500 gm MC DAILY 01/24/20 Fluoxetine HCl [Prozac] 10 mg PO DAILY 01/24/20 LORazepam [Ativan] 1 tab PO Q2H PRN 01/24/20 Lactulose 10 gm PO DAILY 01/24/20 Levothyroxine [Synthroid] 50 mcg PO DAILY 01/24/20 Melatonin 10 mg PO DAILY 01/24/20 Methenamine/Sodium Salicylate [Azo Urinary Tract Defense Tab] 2 tab PO TID 01/24/20 Morphine Oral Syrup [Morphine Oral Syrup*] 1 ml PO Q2H PRN 01/24/20 Ondansetron [Zofran] 4 mg PO Q4H PRN 01/24/20 haloperidoL [Haldol] 2 mg PO TID 01/24/20 - Past Medical/Surgical History Diabetic: No -: alziemer disease -: breast lump removal - Social History Alcohol use: No Place of Residence: Home Review of Systems is unable to be obtained Physical Examination Temp Pulse Resp BP Pulse Ox 97.4 F 66 15 112/67 95 01/25/20 16:00 01/25/20 16:00 01/25/20 16:00 01/25/20 16:00 01/25/20 16:00 General: Cachectic, Unresponsive Laboratory Data (last 24 hrs) 01/25/20 05:27: Sodium 141, Potassium 3.8, BUN 12, Creatinine 0.66, Glucose 91, Magnesium 2.2, Total Bilirubin 0.5, AST 35, ALT 30, Alkaline Phosphatase 61 01/25/20 05:27: WBC 11.5 H, Hgb 12.3, Hct 35.9 L, Plt Count 185 01/24/20 19:05: Sodium 141, Potassium 3.7, BUN 14, Creatinine 0.66, Glucose 108 H, Phosphorus 2.3 L, Magnesium 2.1 01/24/20 19:05: PT 11.0, INR 0.93, APTT 25.1 01/24/20 19:05: WBC 11.5 H, Hgb 12.1, Hct 36.0, Plt Count 194 Imagings Data: EXAM DESCRIPTION: CT - Hip Right Wo Con - 01/25/2020 4:27 pm CLINICAL HISTORY: f/u hip xray Fall, hip pain COMPARISON: Hip Right 2 View dated 01/24/2020 FINDINGS: Subcapital fracture is seen of the proximal right femur with varus angulation. Sclerotic appearance to the femoral head articular surface is noted which could indicate AVN. A nondisplaced fracture component through the greater trochanter is also suspected. Soft tissues surrounding the right hip are mildly prominent. The right sacroiliac joint is intact. IMPRESSION: Subcapital fracture proximal right femur with varus angulation. Nondisplaced greater trochanteric fracture component is also suspected. 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 All CT scans are performed using dose optimization technique as appropriate and may include automated exposure control or mA/KV adjustment according to patient size. - Problems (1) Closed subcapital fracture of neck of right femur Current Visit: Yes Status: Acute Plan: we will schedule her for a right hip hemiarthroplasty tomorrow morning after surgery center schedule if she is cleared, npo after midnight, we will need family to consent her surgery. Qualifiers: Encounter type: initial encounter Qualified Code(s): S72.011A - Unspecified intracapsular fracture of right femur, initial encounter for closed fracture (2) Greater trochanter fracture Current Visit: Yes Status: Acute
--- NOTE | 2020-01-25 20:39 | P.HP ---
Certification for Inpatient Patient admitted to: Inpatient With expected LOS: >2 Midnights Practitioner: I am a practitioner with admitting privileges, knowledge of patient current condition, hospital course, and medical plan of care. 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 I DID DIRECT ADMISSION WITH [facility] TODAY OR TOMORROW THAT WILL BE PALLIATIVE TO RELIVE PAIN. SHE WAS ON HOSPICE AND DECLINING AND WILL NEVER REALLY WALK MUCH. SHE WAS NOT MUCH AMBULATORY BEFORE. 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 I GAVE HIM HISTORY. Allergies No Known Allergies Allergy (Verified 01/24/20 19:48) Home Medications: Curcumin 500 gm MC DAILY 01/24/20 Fluoxetine HCl [Prozac] 10 mg PO DAILY 01/24/20 LORazepam [Ativan] 1 tab PO Q2H PRN 01/24/20 Lactulose 10 gm PO DAILY 01/24/20 Levothyroxine [Synthroid] 50 mcg PO DAILY 01/24/20 Melatonin 10 mg PO DAILY 01/24/20 Methenamine/Sodium Salicylate [Azo Urinary Tract Defense Tab] 2 tab PO TID 01/24/20 Morphine Oral Syrup [Morphine Oral Syrup*] 1 ml PO Q2H PRN 01/24/20 Ondansetron [Zofran] 4 mg PO Q4H PRN 01/24/20 haloperidoL [Haldol] 2 mg PO TID 01/24/20 - Past Medical/Surgical History Has patient received pneumonia vaccine in the past: Yes Diabetic: No -: alziemer disease -: breast lump removal - Social History Smoking Status: Never smoker Alcohol use: No Place of Residence: Home Review of Systems is unable to be obtained Physical Examination - Vital Signs Temperature: 97.4 F Blood Pressure: 112/67 Pulse: 66 Respirations: 15 Pulse Ox (%): 95 - Physical Exam General: Mild distress, Moderate distress, Confused HEENT: Atraumatic, PERRLA, Mucous membr. moist/pink, EOMI, Sclerae nonicteric Neck: Supple, 2+ carotid pulse no bruit, No LAD, Without JVD or thyroid abnormality Respiratory: Clear to auscultation bilaterally, Normal air movement Cardiovascular: Regular rate/rhythm, Normal S1 S2 Gastrointestinal: Normal bowel sounds, No tenderness Musculoskeletal: No tenderness, Other (R HIP IN STABILZER.) Integumentary: No rashes Neurological: Normal gait, Normal speech, Normal strength at 5/5 x4 extr, Normal tone, Normal affect Lymphatics: No axilla or inguinal lymphadenopathy - Studies Laboratory Data (last 24 hrs) 01/25/20 05:27: Sodium 141, Potassium 3.8, BUN 12, Creatinine 0.66, Glucose 91, Magnesium 2.2, Total Bilirubin 0.5, AST 35, ALT 30, Alkaline Phosphatase 61 01/25/20 05:27: WBC 11.5 H, Hgb 12.3, Hct 35.9 L, Plt Count 185 Assessment and Plan - Problems (Diagnosis) (1) Alzheimer disease Current Visit: Yes Status: Acute Plan: SEVERE AND ONLY CONTROL POSSIBLE WITH HALDOL. (2) Closed subcapital fracture of neck of right femur Current Visit: Yes Status: Acute Plan: IN HPI HOPING FOR SURGERY AM. DC HOME WITH HOSPICE AFTER SURGERY. Qualifiers: Encounter type: initial encounter Qualified Code(s): S72.011A - Unspecified intracapsular fracture of right femur, initial encounter for closed fracture (3) Greater trochanter fracture Current Visit: Yes Status: Acute - Advance Directives Does patient have a Living Will: Yes Does patient have a Durable POA for Healthcare: Yes
[2020-01-25] MEDS: MELATONIN 5 MG TABLET PO SCH (20:44)
[2020-01-26] MEDS: HYDROMORPHONE HCL 1 MG/ML INJ IV PRN ×2 (01:59→11:53)
[2020-01-26 05:51] LABS: Absolute Lymphocytes (CBC) 1.3 K/uL (0.7-4.9); Basophils % 0.7 % (0-1.3); Lymphocytes % 16.1 % (15.3-44.8); MPV 7.4 fL (7.6-11.3); RBC Red Blood Cell Count 3.78 M/uL (3.86-4.86)
[2020-01-26 06:03] LABS: Magnesium 2.3 mg/dL (1.8-2.4); Potassium 4.1 mmol/L (3.5-5.1)
[2020-01-26] MEDS: LACTULOSE 20 GM/30 ML UCUP PO SCH (09:00)
[2020-01-26 09:08] VITALS: O2SAT 93
[2020-01-26] MEDS: LEVOTHYROXINE SOD 0.05 MG TABLET PO SCH (09:33)
[2020-01-26] MEDS ORDERED: TRANEXAMIC ACID 1,000 MG in NA CHLORIDE 0.9% 50 ML IV ONE (12:45)
[2020-01-26] MEDS: NACHLORIDE 0.45% 1,000 ML IV SCH (14:47)
[2020-01-26 16:58] VITALS: BP 101/64; TEMP 97.9
[2020-01-26] MEDS ORDERED: ENSURE ENLIVE 237 ML CAN PO SCH (21:00)
--- NOTE | 2020-01-26 21:08 | P.DS ---
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 I DID DIRECT ADMISSION WITH [facility] TODAY OR TOMORROW THAT WILL BE PALLIATIVE TO RELIVE PAIN. SHE WAS ON HOSPICE AND DECLINING AND WILL NEVER REALLY WALK MUCH. SHE WAS NOT MUCH AMBULATORY BEFORE. 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 I GAVE HIM HISTORY. Hospital Course: MRS. UMANA BROKE R HIP. SHE IS SEVERELY DEMENTED AND CACHECTIC LADY WHO IS RPAIDLY GETTINGWORSE. FAMILY HAS DECIDED NOT TO PUT HER THROUGH SURGERY. I AGREE AND SO I DISCHARGED HER BACK HOME WITH HOSPICE. SHE WILL BE ON NARCOTICS TO CONTROL PAIN. UNDERSTANDS THAT SHE MAY OR MAY NOT EAT WELL OR BE AWAKE AND AMBULATORY LIKE BEFORE. Vital Signs/Physical Exam: Temp Pulse Resp BP Pulse Ox 97.9 F 75 15 101/64 93 01/26/20 16:00 01/26/20 16:00 01/26/20 16:00 01/26/20 16:00 01/26/20 16:00 Laboratory Data at Discharge: WBC 8.1 K/uL (4.3-10.9) D 01/26/20 05:37 Hgb 11.8 g/dL (12.0-15.0) L 01/26/20 05:37 Hct 35.0 % (36.0-45.0) L 01/26/20 05:37 Plt Count 205 K/uL (152-406) 01/26/20 05:37 PT 11.0 SECONDS (9.5-12.5) 01/24/20 19:05 INR 0.93 01/24/20 19:05 APTT 25.1 SECONDS (24.3-36.9) 01/24/20 19:05 Sodium 139 mmol/L (136-145) 01/26/20 05:37 Potassium 4.1 mmol/L (3.5-5.1) 01/26/20 05:37 BUN 17 mg/dL (7-18) 01/26/20 05:37 Creatinine 0.68 mg/dL (0.55-1.3) 01/26/20 05:37 Glucose 93 mg/dL (74-106) 01/26/20 05:37 Phosphorus 2.3 mg/dL (2.5-4.9) L 01/24/20 19:05 Magnesium 2.3 mg/dL (1.8-2.4) 01/26/20 05:37 Total Bilirubin 0.5 mg/dL (0.2-1.0) 01/25/20 05:27 AST 35 U/L (15-37) 01/25/20 05:27 ALT 30 U/L (12-78) 01/25/20 05:27 Alkaline Phosphatase 61 U/L (45-117) 01/25/20 05:27 Home Medications: Curcumin 500 gm MC DAILY 01/24/20 Fluoxetine HCl [Prozac] 10 mg PO DAILY 01/24/20 LORazepam [Ativan] 1 tab PO Q2H PRN 01/24/20 Lactulose 10 gm PO DAILY 01/24/20 Levothyroxine [Synthroid] 50 mcg PO DAILY 01/24/20 Melatonin 10 mg PO DAILY 01/24/20 Methenamine/Sodium Salicylate [Azo Urinary Tract Defense Tab] 2 tab PO TID 01/24/20 Morphine Oral Syrup [Morphine Oral Syrup*] 1 ml PO Q2H PRN 01/24/20 Ondansetron [Zofran] 4 mg PO Q4H PRN 01/24/20 haloperidoL [Haldol] 2 mg PO TID 01/24/20 Followup: Joey Fuchs MD [ACTIVE - CAN ADMIT] -
[2020-01-28 23:20] LABS: Vitamin D 1,25-Dihydroxy Total 60 pg/mL (18-72); Vitamin D,1,25-OH2, D2 13 pg/mL
== END 2020-01-26 17:10 | disposition hospice, home (50) | DRG 536 ==
LOC: 2ND 18:26
PROVIDERS: ADMIT Internal Medicine; ATTEND Internal Medicine
DX: S72.011A Unspecified intracapsular fracture of right femur, initial encounter for closed fracture (principal); R64 Cachexia; Z68.1 Body mass index [BMI] 19.9 or less, adult; G30.9 Alzheimer's disease, unspecified; F02.80 Dementia in other diseases classified elsewhere, unspecified severity, without behavioral disturbance, psychotic disturbance, mood disturbance, and anxiety; S72.111A Displaced fracture of greater trochanter of right femur, initial encounter for closed fracture; W18.30XA Fall on same level, unspecified, initial encounter; Y92.009 Unspecified place in unspecified non-institutional (private) residence as the place of occurrence of the external cause; Z79.890 Hormone replacement therapy; Z79.899 Other long term (current) drug therapy; Z20.828 Contact with and (suspected) exposure to other viral communicable diseases
CPT/HCPCS: 36415; 71045; 73700; 80048; 80074; 80076; 81003; 82306; 82607; 82652; 82947; 83735; 84100; 84443; 85025; 85610; 85730; 87040; J1170; J3480; U0003

== ENCOUNTER 2020-09-02 13:57 | Emergency (ER) | payer OTHER ==
[2020-09-02] MEDS ORDERED: LIDOCAINE 1% MPF 5 ML VIAL ONE (15:25)
--- NOTE | 2020-09-02 15:40 | ER ---
Nurse's Notes [facility] Name: Greta Ortiz Age: 80 yrs Sex: Female : 1940 Arrival Date: 09/02/2020 Time: 13:59 Bed 25 Private MD: Diagnosis: Laceration without foreign body, right ankle Presentation: 09/02 14:08 Chief complaint: Patient states: Skin tear/puncture wound to back of R ankle, noticed ll1 today, prob hit on wheelchair. Coronavirus screen: Client denies travel out of the [place] in the last 14 days. At this time, the client does not indicate any symptoms associated with coronavirus-19. Ebola Screen: Patient denies travel to an Ebola-affected area in the 21 days before illness onset. Initial Sepsis Screen: Does the patient meet any 2 criteria? No. Patient's initial sepsis screen is negative. Does the patient have a suspected source of infection? Yes: Skin breakdown/wound. Risk Assessment: Do you want to hurt yourself or someone else? Patient reports no desire to harm self or others. Onset of symptoms was September 02, 2020. 14:08 Method Of Arrival: Wheelchair ll1 14:08 Acuity: HOPE 3 ll1 Historical: - Allergies: 14:08 No Known Allergies; ll1 - PMHx: 14:08 Alzheimers; Hypothyroidism; ll1 - PSHx: 14:08 Lumpectomy; ll1 - Immunization history:: Last tetanus immunization: < 5 years ago Flu vaccine is up to date. - Social history:: Smoking status: Patient denies any tobacco usage or history of. Screenin:42 Abuse screen: no s/s of abuse. at bedside. Nutritional screening: No deficits zb noted. Tuberculosis screening: No symptoms or risk factors identified. Fall Risk Fall in past 12 months (25 points). Secondary diagnosis (15 points) Alzheimer's, No IV (0 pts). Ambulatory Aid- Crutches/Cane/Walker (15 pts). Gait- Normal/Bed Rest/Wheelchair (0 pts) Mental Status- Overestimates/Forgets Limitations (15 pts.). Total Prasad Fall Scale indicates High Risk Score (45 or more points). Fall prevention measures have been instituted. Side Rails Up X 2 Placed Close to Nursing Station Frequent Obs/Assessments Occuring Family Present and informed to notify staff if the need to leave the bedside As available patient and family educated on Fall Prevention Program and Strategies. Assessment: 15:40 General: Appears uncomfortable, Behavior is fussy, history of Alzheimer's . Pain: zb Unable to use pain scale. Patient is disoriented. Neuro: Level of Consciousness is awake, Oriented to none baseline . Cardiovascular: No deficits noted. Respiratory: No deficits noted. GI: No deficits noted. : No deficits noted. Derm: Skin is fragile, is thin, Skin is dry, Skin is normal, Wound noted right ankle Wound is laceration. Injury Description: Laceration sustained to right ankle is jagged, 0.5 to 2.5 cm long, bleeding moderately, a small amount of bleeding noted at this time. Vital Signs: 14:08 BP 143 / 98; Pulse 93; Resp 17; Temp 98.5; Pulse Ox 96% ; Weight 39.01 kg; Pain 4/10; ll1 15:42 BP 112 / 69; Pulse 90; Resp 16; Pulse Ox 97% on R/A; zb ED Course: 13:59 Patient arrived in ED. as 14:09 Triage completed. ll1 14:09 Arm band placed on. ll1 14:20 Carrillo Herndon NP is PHCP. pm1 14:20 Devonte Hidalgo MD is Attending Physician. pm1 14:43 Willow Sanabria, CHIDI is Primary Nurse. zb 15:53 No provider procedures requiring assistance completed. Patient did not have IV access zb during this emergency room visit. 15:54 Patient has correct armband on for positive identification. Pulse ox on. NIBP on. Door zb closed. Noise minimized. Administered Medications: 15:13 Drug: Bupivacaine (0.5 %) 10 ml {Note: administered by ecp .} Volume: 10 ml; Route: zb Infiltration; 15:14 Drug: Lidocaine (1 %) 5 ml {Note: administered. by ecp .} Volume: 5 ml; Route: zb Infiltration; Outcome: 15:40 Discharge ordered by . pm1 15:53 Discharged to home via wheelchair, with family. zb 15:53 Condition: stable 15:53 Discharge instructions given to patient, Instructed on discharge instructions, follow up and referral plans. medication usage, Demonstrated understanding of instructions, follow-up care, medications, Prescriptions given X 1. 15:54 Patient [address] ED. ave Signatures: Elizabeth Coffey Patrick, CHARLIE PRODUCTION EDITOR pm1 Anu Anaya RN RN ll1 Willow Sanabria RN RN zb
--- NOTE | 2020-09-02 15:40 | EDPHYS ---
Physician Documentation [facility] Name: Greta Ortiz Age: 80 yrs Sex: Female : 1940 Arrival Date: 09/02/2020 Time: 13:59 Bed 25 Private MD: ED Physician Devonte Hidalgo HPI: 09/02 14:40 This 80 yrs old Female presents to ER via Wheelchair with complaints of pm1 laceration right ankle. 14:40 The patient presents with a laceration, irregular. The complaints affect the right pm1 ankle. Onset: The symptoms/episode began/occurred 1 hour(s) ago. Context: The problem was sustained at home, resulted from an unknown cause, possibly from transfer from wheelchair to bed by home health nurse resulting in laceration to right ankle area. Associated signs and symptoms: Pertinent negatives: heavy bleeding. Modifying factors: The symptoms are alleviated by dressing to area the symptoms are aggravated by nothing. Severity of symptoms: in the emergency department the symptoms have improved. The patient has not experienced similar symptoms in the past. The patient has not recently seen a physician. reports her tetanus vaccine is up to date. Historical: - Allergies: 14:08 No Known Allergies; ll1 - PMHx: 14:08 Alzheimers; Hypothyroidism; ll1 - PSHx: 14:08 Lumpectomy; ll1 - Immunization history:: Last tetanus immunization: < 5 years ago Flu vaccine is up to date. - Social history:: Smoking status: Patient denies any tobacco usage or history of. ROS: 14:40 Constitutional: Negative for fever, chills, and weight loss. pm1 14:40 Cardiovascular: Negative for chest pain, palpitations, and edema, Respiratory: Negative for shortness of breath, cough, wheezing, and pleuritic chest pain. 14:40 MS/extremity: Positive for laceration, of the right ankle, Negative for decreased range of motion. 14:40 Skin: Positive for laceration(s), of the right ankle. 14:40 All other systems are negative. 14:40 Unable to obtain ROS due to baseline dementia, information obtained from . Exam: 14:40 Constitutional: This is a well developed, well nourished patient who is awake, alert, pm1 and in no acute distress. Head/Face: Normocephalic, atraumatic. 14:40 Eyes: Exam is negative for acute changes, Extraocular movements: no acute changes, Conjunctiva: normal. 14:40 ENT: Exam is negative for acute changes, Mouth: Lips: normal, Oral mucosa: normal, pink and intact, moist. 14:40 Neck: Exam negative for acute changes, ROM/movement: is normal. 14:40 Cardiovascular: Exam negative for acute changes, Rate: normal, Rhythm: regular, Pulses: no pulse deficits are appreciated. 14:40 Respiratory: Exam negative for acute changes, respiratory distress, shortness of breath. 14:40 Musculoskeletal/extremity: Extremities: grossly normal except: noted in the right ankle: laceration, There is no evidence of decreased ROM, deformity. 14:40 Skin: Appearance: normal except for affected area, injury, laceration(s), the wound is approximately 2.5 cm(s), of the right ankle, that can be described as clean, no foreign body, irregular, without bleeding. 14:40 Neuro: Exam negative for acute changes, Orientation: is normal, Motor: is normal, moves all fours. Vital Signs: 14:08 BP 143 / 98; Pulse 93; Resp 17; Temp 98.5; Pulse Ox 96% ; Weight 39.01 kg; Pain 4/10; ll1 15:42 BP 112 / 69; Pulse 90; Resp 16; Pulse Ox 97% on R/A; zb Laceration: 15:38 Wound Repair of 2.5cm ( 1.0in ) subcutaneous laceration to right ankle. Irregularly pm1 shaped.. Distal neuro/vascular/tendon intact. Anesthesia: Local anesthetic administered with 5 mls of Lido/Marcaine. Wound prep: Extensive cleansing with betadine with hibiclenz by wv, Wound irrigation with saline by wv, Wound explored extensively, Copious irrigation. Skin closed with 6 4-0 Prolene using simple sutures and sterile technique. Skin closed with thin layer Adhesive skin closure using Dermabond. Dressed with 4x4's, Kerlix. Patient tolerated well. MDM: 14:20 Patient medically screened. [facility] 14:28 Refusal of service: The patient/guardian displays adequate decision making capability pm1 and despite a detailed discussion of alternatives, benefits, risks, and consequences refuses: all X-rays, Informed him that since he does not know what cut the patient I would like to use imaging to rule out foreign body. does not want an x-ray of her ankle. Wants me to explore the wound which I told him that I already planned on locally numb the wound and extensively wash and explore the wound prior to laceration repair. 15:38 Data reviewed: vital signs. Data interpreted: Pulse oximetry: on room air is 96 %. pm1 Interpretation: normal. Counseling: I had a detailed discussion with the patient and/or guardian regarding: the historical points, exam findings, and any diagnostic results supporting the discharge/admit diagnosis, the need for outpatient follow up, a family practitioner, suture removal in 10-14 days, to return to the emergency department if symptoms worsen or persist or if there are any questions or concerns that arise at home. 09/02 14:27 Order name: Prolene, Sutures; Complete Time: 15:14 pm1 09/02 14:27 Order name: Dressing - Wound; Complete Time: 15:15 pm1 09/02 14:27 Order name: Gloves, Sterile; Complete Time: 15:15 pm1 09/02 14:27 Order name: Setup Suture Tray; Complete Time: 15:15 pm1 Administered Medications: 15:13 Drug: Bupivacaine (0.5 %) 10 ml {Note: administered by ecp .} Volume: 10 ml; Route: zb Infiltration; 15:14 Drug: Lidocaine (1 %) 5 ml {Note: administered. by ecp .} Volume: 5 ml; Route: zb Infiltration; Disposition: 21:18 Co-signature as Attending Physician, Devonte Hidalgo MD I agree with the assessment and césar plan of care. Disposition: 09/02/20 15:40 Discharged to Home. Impression: Laceration without foreign body, right ankle. - Condition is Stable. - Discharge Instructions: Tissue Adhesive Wound Care, Laceration Care, Adult. - Prescriptions for Keflex 500 mg Oral Capsule - take 1 capsule by ORAL route every 12 hours for 10 days; 20 capsule. - Medication Reconciliation Form, Thank You Letter, Antibiotic Education, Prescription Opioid Use form. - Follow up: Emergency Department; When: As needed; Reason: Worsening of condition. Follow up: Private Physician; When: 10 - 14 days; Reason: Recheck today's complaints, Continuance of care, Staple/Suture removal, Re-evaluation by your physician. - Problem is new. - Symptoms have improved. Signatures: Devonte Hidalgo MD MD cha Marinas, Patrick CLINICAL SERVICES MANAGER CLINICAL SERVICES MANAGER pm1 Anu Anaya, RN RN ll1 Willow Sanabria RN RN zb Corrections: (The following items were deleted from the chart) 15:54 15:40 09/02/2020 15:40 Discharged to Home. Impression: Laceration without foreign body, zb right ankle. Condition is Stable. Forms are Medication Reconciliation Form, Thank You Letter, Antibiotic Education, Prescription Opioid Use. Follow up: Emergency Department; When: As needed; Reason: Worsening of condition. Follow up: Private Physician; When: 10 - 14 days; Reason: Recheck today's complaints, Continuance of care, Staple/Suture removal, Re-evaluation by your physician. Problem is new. Symptoms have improved. pm1
[2020-09-02] MEDS ORDERED: DERMABOND SKIN ADHESIVE TOP ONE (15:50)
[2020-09-02 16:08] VITALS: TEMP 98.5
[2020-09-02 16:09] VITALS: BP 112/69; O2SAT 97
== END 2020-09-02 15:54 | disposition home or self-care (01) ==
LOC: ER 13:57
PROC: 0JQN0ZZ Repair Right Lower Leg Subcutaneous Tissue and Fascia, Open Approach (ICD-10-PCS; principal; 2020-09-02)
DX: S91.011A Laceration without foreign body, right ankle, initial encounter (principal); G30.9 Alzheimer's disease, unspecified; F02.80 Dementia in other diseases classified elsewhere, unspecified severity, without behavioral disturbance, psychotic disturbance, mood disturbance, and anxiety
CPT/HCPCS: 99283

== ENCOUNTER 2020-11-25 16:09 | Inpatient (IN) | payer OTHER ==
[2020-11-25 17:08] LABS: Absolute Lymphocytes (CBC) 1.4 K/uL (0.7-4.9); Basophils % 0.2 % (0-1.3); Hematocrit 37.7 % (36.0-45.0); Lymphocytes % 4.8 % (15.3-44.8); MPV 7.1 fL (7.6-11.3); RBC Red Blood Cell Count 4.22 M/uL (3.86-4.86)
[2020-11-25 17:12] LABS: Protime INR 1.12
[2020-11-25] MEDS ORDERED: VANCOMYCIN 1 GM/VIAL ONE (17:18)
[2020-11-25] MEDS ORDERED: CEFEPIME/SWI 1gm 10 ML ONE (17:18)
[2020-11-25] MEDS ORDERED: NA CHLORIDE 0.9% 250 ML ONE (17:19)
[2020-11-25 17:28] LABS: ALT/SGPT 19 U/L (12-78); AST/SGOT 19 U/L (15-37); Albumin 2.2 g/dL (3.4-5.0); Alkaline Phosphatase 94 U/L (45-117); BUN Blood Urea Nitrogen 16 mg/dL (7-18); Bicarbonate 30 mmol/L (21-32); Bilirubin Direct 0.2 mg/dL (0-0.2); Bilirubin Total 0.7 mg/dL (0.2-1.0); Creatine Phosphokinase 221 U/L (26-192); Glucose Level 115 mg/dL (74-106); Lipase 62 U/L (73-393); Potassium 3.7 mmol/L (3.5-5.1); Protein, Total 6.8 g/dL (6.4-8.2); Sodium Level 136 mmol/L (136-145); Troponin (Emerg Dept Use Only) < 0.02 ng/mL (0.0-0.045)
[2020-11-25 17:30] LABS: Amylase 332 U/L (25-115)
--- NOTE | 2020-11-25 18:00 | RAD REPORT ---
EXAM DESCRIPTION: CT - Soft Tissue Neck W/Contr - 11/25/2020 5:20 pm CLINICAL HISTORY: Neck mass COMPARISON: <Comparisons> TECHNIQUE: During dynamic enhancement using 100 milliliters nonionic IV contrast, axial 5 millimeter thick images of the neck were obtained. All CT scans are performed using dose optimization technique as appropriate and may include automated exposure control or mA/KV adjustment according to patient size. FINDINGS: Intracranial portion examination shows atrophy and chronic ischemic change. Ventricles are in proportion. No globe or orbital content abnormality. Mastoid air cells and middle ears are clear. Mucosal thickening with air-fluid level present in the left maxillary sinus. Paranasal sinuses other dillard clear. Patient has asymmetry in the thickness of the superficial soft tissues more pronounced on the left. L eft-sided tissues appear to be edematous including the soft tissues inferior to the left ear and exte rnal auditory canal. No abscess or drainable fluid collection. The left parotid gland is hyperemic. N o abnormal left-sided lymphadenopathy or mass. Assessment is limited by the extent of dental spray artifact. Pharyngeal soft tissues are more promin ent than on the left in the tissues overall are edematous. A defined mass is not seen. Submandibular glands are symmetric and normal. No thyroid gland abnormality. The right-side parotid gland is not identifiable. IMPRESSION: Congested or edematous superficial fatty tissues of the left-side of the neck with april nued edema into the soft tissues up to the pharyngeal mucosa. This is most pronounced in the posterio r left supraglottic region. A discrete mass is not identifiable. Infectious/inflammatory etiology is suspected. There is no drain able fluid collection. Left maxillary sinusitis.
--- NOTE | 2020-11-25 18:02 | RAD REPORT ---
EXAM DESCRIPTION: RAD - Chest Single View - 11/25/2020 5:40 pm CLINICAL HISTORY: Neck mass COMPARISON: January 2005 TECHNIQUE: AP portable chest image was obtained 11/25/2020 5:40 pm . FINDINGS: Fibrotic lung changes are present with no peripheral mass or consolidation. Hilar regions within normal limits. Failure and volume overload are not suspected. Heart and vasculature are normal. No measurable pleural effusion and no pneumothorax. No acute bony abnormality seen. No acute aortic findings. Left-sided soft tissues are asymmetric compared to the right. This is further addressed on separate C T report. IMPRESSION: No acute cardiopulmonary process.
--- NOTE | 2020-11-25 18:54 | EDPHYS ---
Physician Documentation [facility] Name: Greta Ortiz Age: 80 yrs Sex: Female : 1940 Arrival Date: 11/25/2020 Time: 16:19 Bed 24 Private MD: ED Physician Isai Zavala HPI: 11/25 16:31 This 80 yrs old Female presents to ER via EMS with complaints of Fever, Neck kdr Swelling. 16:31 States that he noticed some redness around her left lateral face anterior to the left kdr ear yesterday. Today it is progressed. Home health was called and they advised some Benadryl cream. Patient has continued to have increasing redness and swelling to the left side of her face in the preauricular area. The patient is on hospice care and per the is close to the end of her time with her dementia. Most recently she had a fracture of the right hip which was not repaired due to the prognosis overall. Historical: - Allergies: 16:28 No Known Allergies; iw - PMHx: 16:28 Alzheimers; Hypothyroidism; iw ROS: 16:31 Constitutional: Negative for fever, chills, and weight loss, Eyes: Negative for injury, kdr pain, redness, and discharge, Cardiovascular: Negative for chest pain, palpitations, and edema, Respiratory: Negative for shortness of breath, cough, wheezing, and pleuritic chest pain, Abdomen/GI: Negative for abdominal pain, nausea, vomiting, diarrhea, and constipation, Back: Negative for injury and pain, : Negative for injury, bleeding, discharge, and swelling, Skin: Negative for injury, rash, and discoloration. 16:31 ENT: Positive for Left preauricular pain and swelling. 16:31 Neck: Positive for mass, swelling, swollen nodes, tenderness, There is considerable swelling in the left facial area as well as the left submandibular area. Exam: 16:31 Constitutional: This is a well developed, well nourished patient who is awake, alert, kdr and in no acute distress. Eyes: Pupils equal round and reactive to light, extra-ocular motions intact. Lids and lashes normal. Conjunctiva and sclera are non-icteric and not injected. Cornea within normal limits. Periorbital areas with no swelling, redness, or edema. Chest/axilla: Normal chest wall appearance and motion. Nontender with no deformity. No lesions are appreciated. Cardiovascular: Regular rate and rhythm with a normal S1 and S2. No gallops, murmurs, or rubs. Normal PMI, no JVD. No pulse deficits. Respiratory: Lungs have equal breath sounds bilaterally, clear to auscultation and percussion. No rales, rhonchi or wheezes noted. No increased work of breathing, no retractions or nasal flaring. 16:31 Head/face: Noted is erythema, that is mild, swelling, of the left ear, left cheek and left mandible. Vital Signs: 16:22 BP 137 / 78; Pulse 90; Resp 22 S; Temp 102.3(TE); Pulse Ox 100% on R/A; iw 16:45 BP 137 / 78; Pulse 105; Resp 20; Temp 102.3(TE); Pulse Ox 100% on R/A; kh1 19:30 Weight 38.56 kg; Height 4 ft. 11 in. (149.86 cm); sj1 20:28 BP 141 / 87 LA Supine (auto/pedi); Pulse 106; Resp 24 S; Temp 102.8(R); Pulse Ox 96% on sj1 R/A; Pain 4/10; 22:00 BP 140 / 80 LA Supine (auto/pedi); Pulse 103; Resp 16; Temp 102.2; Pulse Ox 97% on R/A; sj1 Pain 0/10; 19:30 Body Mass Index 17.17 (38.56 kg, 149.86 cm) [facility] MDM: 16:31 Data reviewed: vital signs, nurses notes, lab test result(s), radiologic studies. kdr Counseling: I had a detailed discussion with the patient and/or guardian regarding: the historical points, exam findings, and any diagnostic results supporting the discharge/admit diagnosis, lab results, radiology results. 18:53 Patient medically screened. kdr 11/25 16:25 Order name: Amylase, Serum; Complete Time: 18:24 kdr 11/25 16:25 Order name: Basic Metabolic Panel; Complete Time: 18:24 kdr 11/25 16:25 Order name: Blood Culture Adult (2) kdr 11/25 16:25 Order name: CBC with Diff kdr 11/25 16:25 Order name: CPK; Complete Time: 18:24 kdr 11/25 16:25 Order name: Ckmb; Complete Time: 18:24 kdr 11/25 16:25 Order name: LFT's; Complete Time: 18:24 kdr 11/25 16:25 Order name: Lactate; Complete Time: 18:24 kdr 11/25 16:25 Order name: Lipase; Complete Time: 18:24 kdr 11/25 16:25 Order name: Procalcitonin; Complete Time: 18:56 kdr 11/25 16:25 Order name: Protime (+inr); Complete Time: 18:24 kdr 11/25 16:25 Order name: Ptt, Activated; Complete Time: 18:24 kdr 11/25 16:25 Order name: Troponin (emerg Dept Use Only); Complete Time: 18:24 kdr 11/25 16:25 Order name: Urine Microscopic Only kdr 11/25 16:25 Order name: Chest Single View XRAY; Complete Time: 18:24 kdr 11/25 16:25 Order name: CT Soft Tissue Neck W/contr; Complete Time: 18:24 kdr 11/25 19:05 Order name: Basic Metabolic Panel EDMS 11/25 19:05 Order name: Basic Metabolic Panel EDMS 11/25 19:06 Order name: CBC with Automated Diff EDMS 11/25 19:06 Order name: CBC with Automated Diff EDMS 11/25 19:28 Order name: COVID-19 : Document "Date of Symptom Onset" if Symptomatic. kb 11/25 19:31 Order name: COVID-19 : Document "Date of Symptom Onset" if Symptomatic. bc5 11/25 19:37 Order name: CORONAVIRUS EDMS 11/25 19:38 Order name: CORONAVIRUS EDMS 11/25 20:02 Order name: Manual Differential EDMS 11/25 20:07 Order name: Urine Dipstick-Ancillary EDMS 11/25 20:55 Order name: SARS-COV-2 RT PCR EDMS 11/25 16:25 Order name: Accucheck; Complete Time: 18:24 kdr 11/25 16:25 Order name: Cardiac monitoring; Complete Time: 16:50 kdr 11/25 16:25 Order name: EKG - Nurse/Tech; Complete Time: 16:50 kdr 11/25 16:25 Order name: IV Saline Lock - Large Bore; Complete Time: 16:51 kdr 11/25 16:25 Order name: Labs collected and sent; Complete Time: 16:51 kdr 11/25 16:25 Order name: O2 Per Protocol; Complete Time: 16:50 kdr 11/25 16:25 Order name: O2 Sat Monitoring; Complete Time: 16:50 kdr 11/25 16:25 Order name: Urine Dipstick-Ancillary (obtain specimen); Complete Time: 20:23 kdr 11/25 19:05 Order name: Clear Liquid [facility] 11/25 19:07 Order name: Respiratory Therapy Consult [facility] 11/25 19:08 Order name: Misc. Order: Espinoza to gravity kdr Administered Medications: 13:52 Drug: vancoMYCIN 1 grams Route: IVPB; Infused Over: 2 hrs; Site: right antecubital; pending sale to [facility] 20:26 Follow up: IV Status: Completed infusion 1 17:00 Drug: Cefepime 1 grams Route: IVPB; Rate: 200 ml/hr; Infused Over: 30 mins; Site: left kh1 antecubital; 20:24 Drug: Tylenol Suppository 650 mg Route: WA; sj1 Disposition Summary: 11/25/20 18:53 Hospitalization Ordered Hospitalization Status: Inpatient Admission kdr Provider: Joey Fuchs kdr Location: Telemetry/[facility] (Inpatient) kdr Condition: Serious kdr Problem: new kdr Symptoms: have improved kdr Bed/Room Type: Standard [facility] Room Assignment: 213(11/25/20 21:02) cg Diagnosis - Cellulitis of face kdr Forms: - Medication Reconciliation Form kdr - SBAR form kdr Signatures: Dispatcher [employer] [facility] Isai Zavala MD MD kdr Sandy Hankins RN RN bb Williams, Irene, RN RN iw Garcia, Cindy, RN RN cg Harris, Kecia pending sale to [facility] Ira Rangel [facility] Corrections: (The following items were deleted from the chart) 21:02 18:53 kdr cg
--- NOTE | 2020-11-25 18:54 | ER ---
Nurse's Notes [facility] Name: Greta Ortiz Age: 80 yrs Sex: Female : 1940 Arrival Date: 11/25/2020 Time: 16:19 Bed 24 Private MD: Diagnosis: Cellulitis of face Presentation: 11/25 16:22 Chief complaint: EMS states: family noticed a red spot on pt left side of neck under iw her left ear yesterday, today the area is more swollen and hard to touch, EMS was toned out for possible allergic reaction, give 25 Benadryl IVP, pt was 79% on RA, placed on 4 L NC, now up to 100% , temp 102 upon arrival to ER, says pt was not eating well and had some vomiting earlier this week, pt is on hospice/DNR for late stage dementia/Alzheimer's , gave 0.25 mL morphine this morning because she seemed uncomfortable. Coronavirus screen: Client presents with at least one sign or symptom that may indicate coronavirus-19. Ebola Screen: Patient negative for fever greater than or equal to 101.5 degrees Fahrenheit, and additional compatible Ebola Virus Disease symptoms Patient denies exposure to infectious person. Patient denies travel to an Ebola-affected area in the 21 days before illness onset. No symptoms or risks identified at this time. Initial Sepsis Screen: Does the patient meet any 2 criteria? Temp <36.0*C (96.8*F)) or > 38.3*C (100.9*F). Does the patient have a suspected source of infection? Yes: Skin breakdown/wound. Risk Assessment: Do you want to hurt yourself or someone else? Unable to obtain. Onset of symptoms was November 25, 2020. 16:22 Method Of Arrival: EMS: [facility] iw 16:22 Acuity: HOPE 3 iw Triage Assessment: 16:45 General: Appears uncomfortable, slender, malnourished, Behavior is flat, quiet. Neuro: kh1 Level of Consciousness is lethargic, Oriented to none Jet Wiper are weak bilaterally Weakness Gait is Speech non verbal. Cardiovascular: No deficits noted. Respiratory: No deficits noted. Airway is patent Respiratory effort is even, weak, Respiratory pattern is regular. Historical: - Allergies: 16:28 No Known Allergies; iw - PMHx: 16:28 Alzheimers; Hypothyroidism; iw Screenin:49 Abuse screen: Denies threats or abuse. Nutritional screening: Difficulty kh1 chewing/swallowing? Yes. Tuberculosis screening: No symptoms or risk factors identified. Fall Risk Secondary diagnosis (15 points) Alzheimer's, IV access (20 points). Mental Status- Overestimates/Forgets Limitations (15 pts.). Assessment: 16:49 General: Appears in no apparent distress. uncomfortable. Pain: Denies pain. Noted to be kh1 confused, withdrawn. 20:32 Reassessment: Patient appears in no apparent distress at this time. Patient and/or sj1 family updated on plan of care and expected duration. Pain level reassessed. Neuro: Level of Consciousness is awake, Oriented to none Gait is ataxic. EENT: LEFT SIDED FACIAL SWELLING. Derm: Decubitus located on sacrum is stage I. Vital Signs: 16:22 BP 137 / 78; Pulse 90; Resp 22 S; Temp 102.3(TE); Pulse Ox 100% on R/A; iw 16:45 BP 137 / 78; Pulse 105; Resp 20; Temp 102.3(TE); Pulse Ox 100% on R/A; kh1 19:30 Weight 38.56 kg; Height 4 ft. 11 in. (149.86 cm); sj1 20:28 BP 141 / 87 LA Supine (auto/pedi); Pulse 106; Resp 24 S; Temp 102.8(R); Pulse Ox 96% on sj1 R/A; Pain 4/10; 22:00 BP 140 / 80 LA Supine (auto/pedi); Pulse 103; Resp 16; Temp 102.2; Pulse Ox 97% on R/A; sj1 Pain 0/10; 19:30 Body Mass Index 17.17 (38.56 kg, 149.86 cm) [facility] ED Course: 16:19 Patient arrived in ED. eb 16:23 Isai Zavala MD is Attending Physician. kdr 16:28 Triage completed. iw 16:29 Arm band placed on. iw 16:31 Maintain EMS IV. Dressing intact. Good blood return noted. Site clean \\T\\ dry. Gauge \\T\\ iw site: 22 left wrist. 16:45 Patti Sma is Primary Nurse. kh1 16:50 Amylase, Serum Sent. kh1 16:50 Basic Metabolic Panel Sent. kh1 16:50 Blood Culture Adult (2) Sent. kh1 16:50 CBC with Diff Sent. kh1 16:50 CPK Sent. kh1 16:50 Ckmb Sent. kh1 16:50 LFT's Sent. kh1 16:50 Lactate Sent. kh1 16:50 Lipase Sent. kh1 16:50 Procalcitonin Sent. kh1 16:50 Protime (+inr) Sent. kh1 16:50 Ptt, Activated Sent. kh1 16:50 Troponin (emerg Dept Use Only) Sent. kh1 17:20 CT Soft Tissue Neck W/contr In Process Unspecified. EDMS 17:39 Chest Single View XRAY In Process Unspecified. EDMS 18:52 Joey Fuchs MD is Hospitalizing Provider. kdr 19:33 COVID-19 : Document "Date of Symptom Onset" if Symptomatic. Sent. sj1 20:29 Espinoza cath inserted, using sterile technique, 14 Fr., by ED staff, balloon inflated, to sj1 gravity drainage, urine specimen collected. 20:30 Inserted saline lock: 22 gauge in right antecubital area, using aseptic technique. sj1 20:31 Patient has correct armband on for positive identification. Placed in gown. Bed in low sj1 position. Call light in reach. Side rails up X 1. Adult w/ patient. awake overnight monitor on. Pulse ox on. NIBP on. Noise minimized. Lights dimmed. Head of bed elevated. Turned to left side. 22:07 No provider procedures requiring assistance completed. Patient admitted, IV remains in lp1 place. Administered Medications: 13:52 Drug: vancoMYCIN 1 grams Route: IVPB; Infused Over: 2 hrs; Site: right antecubital; kh1 20:26 Follow up: IV Status: Completed infusion sj1 17:00 Drug: Cefepime 1 grams Route: IVPB; Rate: 200 ml/hr; Infused Over: 30 mins; Site: left [facility] antecubital; 20:24 Drug: Tylenol Suppository 650 mg Route: WI; sj1 Outcome: 18:53 Decision to Hospitalize by Provider. kdr 22:07 Condition: stable lp1 22:07 Instructed on the need for admit. 22:16 Admitted to Med/surg room 213, with chart, Report called to CHIDI Crawford lp1 22:52 Patient left the ED. lp1 Signatures: Dispatcher [employer] EDMS Isai Zavala MD MD kdr Williams, Irene, RN RN iw Rosa Galdamez RN RN lp1 Bernie Nguyen Kecia [facility] Ira Rangel [facility]
[2020-11-25] MEDS: NA CHLORIDE 0.9% 1,000 ML IV SCH (19:00)
[2020-11-25] MEDS ORDERED: VANCOMYCIN/NS 1 gm 1 GM/250 ML BAG IVPB SCH (19:00)
[2020-11-25] MEDS ORDERED: ACETAMINOPHEN 500 MG TAB PO PRN (19:00)
[2020-11-25 20:02] LABS: Blood Morphology Comment NOT SEEN (NOT SEEN); Platelet Estimate ADEQ
[2020-11-25 20:07] LABS: Urine Blood 3+ (Negative); Urine Glucose Negative (Negative); Urine Protein 1+ (Negative); Urine Specific Gravity 1.025 (1.005-1.030); Urine pH 5.5 (5.0-7.0)
[2020-11-25] MEDS ORDERED: ACETAMINOPHEN 650MG/RECT SUPP PR ONE (20:34)
[2020-11-25] MEDS ORDERED: CEFEPIME 1 GM/VIAL IV SCH (21:00)
[2020-11-25 21:18] LABS: Urine Bacteria 20-50 /HPF (<20); Urine Mucus 4+ /HPF (NONE SEEN)
[2020-11-25] MEDS: FENTANYL 25 MCG/PATCH TD SCH (23:30)
[2020-11-26 00:39] VITALS: BMI 17.2
[2020-11-26] MEDS: MORPHINE 2 MG/ML SYR IV PRN ×2 (00:40→22:14)
[2020-11-26 06:01] LABS: Absolute Lymphocytes (CBC) 1.3 K/uL (0.7-4.9); Basophils % 0.2 % (0-1.3); Hematocrit 34.5 % (36.0-45.0); Lymphocytes % 5.4 % (15.3-44.8); MPV 7.2 fL (7.6-11.3); RBC Red Blood Cell Count 3.85 M/uL (3.86-4.86)
[2020-11-26 06:16] LABS: BUN Blood Urea Nitrogen 19 mg/dL (7-18); Bicarbonate 26 mmol/L (21-32); Glucose Level 111 mg/dL (74-106); Potassium 3.7 mmol/L (3.5-5.1); Sodium Level 139 mmol/L (136-145)
[2020-11-26] MEDS: NA CHLORIDE 0.9% 1,000 ML IV SCH ×2 (08:31→21:40)
[2020-11-26] MEDS ORDERED: MORPHINE SULF 10 MG/5 ML OSYR PO PRN (09:41)
[2020-11-26] MEDS ORDERED: LORAZEPAM 0.5 MG TABLET PO PRN (09:41)
--- NOTE | 2020-11-26 10:39 | P.HP ---
Certification for Inpatient Patient admitted to: Inpatient With expected LOS: >2 Midnights Practitioner: I am a practitioner with admitting privileges, knowledge of patient current condition, hospital course, and medical plan of care. Services: Services provided to patient in accordance with Admission requirements found in Title 42 Section 412.3 of the Code of Federal Regulations Patient History Date of Service: 11/26/20 Reason for admission: L SIDE NECK PAIN, SWELLING, FEVER, NAUSEA, VOMITING History of Present Illness: JOSÉ MANUEL IS SEVERELY DEMENTED LADY WHO WAS ON HOSPICE FOR DEMENTIA, CACHEXIA ETC, DEVELOPED SYMPTOMS WITH PAIN, FEVER, NAUSEA ABOVE. SUSIE HAS LARGE AREA OF CELLULITIS, INDURATION, SEVERE TENDERNESS ON L SIDE UPPER NECK AND IS ADMITTED FOR IT. THIS IS DIAGNOSIS NOT RELATED TO HOSPICE. Allergies No Known Allergies Allergy (Verified 01/24/20 19:48) Home medications list reviewed: Yes Home Medications: Fluoxetine HCl [Prozac] 10 mg PO DAILY 01/24/20 LORazepam [Ativan] 1 tab PO Q2H PRN 01/24/20 Lactulose 10 gm PO DAILY 01/24/20 Levothyroxine [Synthroid] 50 mcg PO DAILY 01/24/20 Melatonin 10 mg PO DAILY 01/24/20 Morphine Oral Syrup [Morphine Oral Syrup*] 1 ml PO Q2H PRN 01/24/20 haloperidoL [Haldol] 2 mg PO TID 01/24/20 - Past Medical/Surgical History Has patient received pneumonia vaccine in the past: Yes Diabetic: No -: alziemer disease -: thyroid disease -: breast lump removal - Social History Smoking Status: Never smoker Alcohol use: No CD- Drugs: No Place of Residence: Home Review of Systems 10-point ROS is otherwise unremarkable General: Weakness, Malaise Respiratory: As per HPI Integumentary: As per HPI Physical Examination - Vital Signs Temperature: 98.1 F Blood Pressure: 123/72 Pulse: 87 Respirations: 16 Pulse Ox (%): 96 - Physical Exam General: Confused (DISORIENTED.), Other HEENT: Other (L SIDE NECK HAS SEVERE TENDERNESS, INDURATION INVOLVING ARE ABOUT 10 CMIN DIAMETER.) Neck: Without JVD or thyroid abnormality Respiratory: Clear to auscultation bilaterally Cardiovascular: Regular rate/rhythm - Studies Laboratory Data (last 24 hrs) 11/25/20 16:35: PT 12.9 H, INR 1.12, APTT 26.0 09/18/21 16:35: WBC 28.80 H*, Hgb 12.7, Hct 37.7, Plt Count 359 11/25/20 16:35: Sodium 136, Potassium 3.7, BUN 16, Creatinine 0.60, Glucose 115 H, Total Bilirubin 0.7, AST 19, ALT 19, Alkaline Phosphatase 94, Amylase 332 H*, Lipase 62 L Assessment and Plan - Problems (Diagnosis) (1) Cellulitis, neck Current Visit: Yes Status: Acute Plan: I ASKED DR. BRIDGES TO START VANCOMYCIN. THIS IS SEVERE INFECTION AND CAN HAVE MRSA AND OR ANEROBIC BACTERIA INFECTION FROM ORAL CAVITY. I WILL STOP CEFEPIME AND START ZOSYN IV. I TALKED TO . HE IS AWARE OF PLAN. PICC LINE 14 DAYS OF IV ABX. CONSULT DR. CUI. SHE IS NOT A SURGICAL CANDIDATE. (2) Pharyngeal abscess Current Visit: Yes Status: Acute (3) Alzheimer disease Current Visit: No Status: Chronic Plan: SEVERE CACHEXIA NON VERBAL. FAST SCORE- 7E - Advance Directives Does patient have a Living Will: Yes Does patient have a Durable POA for Healthcare: Yes
[2020-11-26] MEDS: PIPER/TAZO/NS 3.375gm 3.375 GM/100 ML BAG IV SCH ×2 (12:18→18:02)
[2020-11-26] MEDS ORDERED: VANCOMYCIN 750 MG in NA CHLORIDE 0.9% 150 ML IVPB SCH (14:00)
[2020-11-26] MEDS ORDERED: CEFEPIME/SWI 1gm 10 ML IV SCH (17:00)
[2020-11-26] MEDS: MELATONIN 5 MG TABLET PO SCH (21:00)
[2020-11-26] MEDS: HALOPERIDOL LACT 5 MG/ML INJ IV SCH (22:18)
[2020-11-27] MEDS: PIPER/TAZO/NS 3.375gm 3.375 GM/100 ML BAG IV SCH ×4 (01:36→16:10)
[2020-11-27 06:06] LABS: Absolute Lymphocytes (CBC) 1.3 K/uL (0.7-4.9); Basophils % 0.4 % (0-1.3); Hematocrit 31.8 % (36.0-45.0); Lymphocytes % 7.8 % (15.3-44.8); MPV 7.2 fL (7.6-11.3); RBC Red Blood Cell Count 3.49 M/uL (3.86-4.86)
[2020-11-27 06:16] LABS: BUN Blood Urea Nitrogen 16 mg/dL (7-18); Bicarbonate 26 mmol/L (21-32); Glucose Level 82 mg/dL (74-106); Potassium 3.3 mmol/L (3.5-5.1); Sodium Level 144 mmol/L (136-145)
[2020-11-27] MEDS: LEVOTHYROXINE SOD 0.05 MG TABLET PO SCH (06:25)
[2020-11-27] MEDS: LACTULOSE 20 GM/30 ML UCUP PO SCH (09:00)
[2020-11-27] MEDS: FLUOXETINE 10 MG CAP PO SCH (09:00)
[2020-11-27] MEDS: HALOPERIDOL LACT 5 MG/ML INJ IV SCH ×2 (09:00→21:00)
[2020-11-27] MEDS: ENOXAPARIN 40 MG/0.4 ML SQ SCH (09:00)
[2020-11-27] MEDS: NA CHLORIDE 0.9% 1,000 ML IV SCH (11:37)
[2020-11-27] MEDS ORDERED: VANCOMYCIN 750 MG in NA CHLORIDE 0.9% 250 ML IVPB SCH (14:00)
[2020-11-27] MEDS: MORPHINE 2 MG/ML SYR IV PRN (14:58)
[2020-11-27] MEDS: MELATONIN 5 MG TABLET PO SCH (21:00)
--- NOTE | 2020-11-27 21:19 | P.PN ---
Subjective Date of Service: 11/27/20 Chief Complaint: L SIDE NECK PAIN, SWELLING, FEVER, NAUSEA, VOMITING Subjective: Improving SHE HAS IMPROVED SOMEWHAT. STILL VERY MUCH IN PAIN IN THE L PAROTID. Physical Examination - Vital Signs Temperature: 98.6 F Blood Pressure: 131/66 Pulse: 78 Respirations: 17 Pulse Ox (%): 98 - Physical Exam General: Cachectic, Moderate distress, Severe distress, Confused HEENT: Atraumatic, PERRLA, Other (INDURATED L PAROTID SWELLING. ), EOMI Neck: Supple, JVD not distended Respiratory: Clear to auscultation bilaterally, Normal air movement Cardiovascular: Regular rate/rhythm, Normal S1 S2 Gastrointestinal: Normal bowel sounds, No tenderness Musculoskeletal: No tenderness Integumentary: No rashes Neurological: Normal speech, Normal tone, Normal affect Lymphatics: No axilla or inguinal lymphadenopathy - Studies Microbiology Data (last 24 hrs): 11/25/20 16:35 Blood - Blood Blood Culture Gram Stain - Final 11/25/20 17:00 Blood - Blood Blood Culture Gram Stain - Final 11/25/20 17:00 Blood - Blood Gram Stain - Final Medications List Reviewed: Yes Assessment And Plan - Current Problems (Diagnosis) (1) Cellulitis, neck Current Visit: Yes Status: Acute Plan: I ASKED DR. BRIDGES TO START VANCOMYCIN. THIS IS SEVERE INFECTION AND CAN HAVE MRSA AND OR ANEROBIC BACTERIA INFECTION FROM ORAL CAVITY. I WILL STOP CEFEPIME AND START ZOSYN IV. I TALKED TO . HE IS AWARE OF PLAN. PICC LINE 14 DAYS OF IV ABX. CONSULT DR. CUI. SHE IS NOT A SURGICAL CANDIDATE. MORE SETTLED IN L PAROTID NOW. (2) Alzheimer disease Current Visit: No Status: Chronic Plan: SEVERE CACHEXIA NON VERBAL. FAST SCORE- 7E (3) Suppurative parotitis Current Visit: Yes Status: Acute Plan: DR. POLK WANTS TO CONTINUE BOTH ABX. I WILL DO SO FOR TWO WEEKS.
--- NOTE | 2020-11-27 22:58 | CON ---
Date of Consultation: 11/27/2020 Requesting Physician: Joey Fuchs M.D. Reason For Consultation: Facial cellulitis. History Of Present Illness: Ms. Greta Ortiz is an 80-year-old white woman, who lives at home with her , with daytime home health nursing assistance. She was admitted on 11/25/2020 for facial cellulitis, decreased oral intake, and infection. She has been on hospice, but was admitted for medical care due to the severity of the infection. She is unable to answer questions due to her dementia and a portion of her history is obtained from her spouse and from the medical record. PMH: Dementia, malnutrition, hypothyroidism Medications: levothyroxine, Haldol, Prozac, Melatonin, Vancomycin, Zosyn Physical Examination: General: The patient is not oriented to person, place, or time. She is lying in her bed without acute respiratory distress. She is unable to answer question due to the severity of her dementia. Notable physical findings include an area of redness concentrated over her left parotid gland, cheek, and upper neck with palpable induration and swelling. There is a black line drawn on her skin encompassing the majority of the left cheek, left neck extending across the midline over the clavicle, the upper portion of the shoulder and extending somewhat onto the left adventism. The area of redness currently is significantly smaller than this line. The oral cavity is noted to be a very dry. Her teeth appear to be in overall good condition with no obvious avulsed or abscess teeth. While examining the mouth and applying pressure externally over the area of swelling, it is noted there is very thick pus coming from the left Stensen duct opening suggesting acute suppurative parotitis as the starting point for this infection. The palate and oropharynx appear a rapidly within normal limits without evidence of significant swelling or tonsillitis at this time. Data: The patient was noted to have severely elevated white blood cell count on admission, which is improving since her hospitalization. Elevated procalcitonin on admission. Blood cultures (prelim) positive for gram + cocci in clusters - ID and susceptibility is pending. The radiology report and CT images of the CT neck with contrast are personally reviewed by me. The scan demonstrates significant swelling and soft tissue edema overlying the left parotid and upper left neck with swelling extending into the parapharyngeal space with asymmetry of the parapharyngeal tissues, oral pharynx, and some swelling of the larynx specifically the epiglottis. Assessment: Acute suppurative parotitis resulting in facial and neck cellulitis without drainable abscess cavity. Plan: Continue aggressive antibiotics including IV vancomycin and Zosyn. Aggressive oral care including moisturization of oral cavity, parotid massage frequently to increase drainage through the parotid duct. The patient is unable to adequately comply with sour candies or other sialagogues at this time, but if her mental status improves and she is able to take these, it may help stimulate the flow of saliva and help to clear the infection. I spoke with Dr. Fuchs regarding my findings and recommendation. He plans to proceed with placement of a PICC line in order to facilitate outpatient IV antibiotic as the patient improves medically. SUSIE/NIDHI Voice ID: [id number] Report ID: [id number] MTDD
[2020-11-28] MEDS: PIPER/TAZO/NS 3.375gm 3.375 GM/100 ML BAG IV SCH ×2 (00:03→09:51)
[2020-11-28] MEDS: NA CHLORIDE 0.9% 1,000 ML IV SCH ×2 (00:20→21:04)
[2020-11-28] MEDS: MORPHINE 2 MG/ML SYR IV PRN ×2 (04:04→21:04)
[2020-11-28 04:34] LABS: Absolute Lymphocytes (CBC) 1.2 K/uL (0.7-4.9); Basophils % 0.4 % (0-1.3); Hematocrit 30.2 % (36.0-45.0); Lymphocytes % 9.2 % (15.3-44.8); MPV 6.9 fL (7.6-11.3); RBC Red Blood Cell Count 3.35 M/uL (3.86-4.86)
[2020-11-28 04:40] LABS: BUN Blood Urea Nitrogen 12 mg/dL (7-18); Bicarbonate 28 mmol/L (21-32); Glucose Level 107 mg/dL (74-106); Sodium Level 145 mmol/L (136-145)
[2020-11-28 04:43] LABS: Potassium 2.9 mmol/L (3.5-5.1)
[2020-11-28] MEDS: LEVOTHYROXINE SOD 0.05 MG TABLET PO SCH (05:31)
[2020-11-28] MEDS: KCL 20 MEQ/100 mL IVPB 20 MEQ/100 ML BAG IV SCH ×3 (06:00→10:00)
[2020-11-28] MEDS: FLUOXETINE 10 MG CAP PO SCH (09:52)
[2020-11-28] MEDS: HALOPERIDOL LACT 5 MG/ML INJ IV SCH ×2 (09:52→21:04)
[2020-11-28] MEDS: LACTULOSE 20 GM/30 ML UCUP PO SCH (09:53)
[2020-11-28] MEDS: ENOXAPARIN 40 MG/0.4 ML SQ SCH (09:53)
[2020-11-28] MEDS ORDERED: POTASSIUM CL 40 MEQ in NA CHLORIDE 0.9% 500 ML IV ONE (12:00)
--- NOTE | 2020-11-28 12:51 | P.PN ---
Subjective Date of Service: 11/28/20 Chief Complaint: L SIDE NECK PAIN, SWELLING, FEVER, NAUSEA, VOMITING Subjective: Improving SHE HAS IMPROVED SOMEWHAT. STILL VERY MUCH IN PAIN IN THE L PAROTID. SHE IS NOT MUCH IN PAIN. Physical Examination - Vital Signs Temperature: 96.8 F Blood Pressure: 143/66 Pulse: 76 Respirations: 17 Pulse Ox (%): 94 - Physical Exam General: Cachectic, Mild distress, Confused HEENT: Other (L PAROTID SWELLING AND INDURATION IS LOT LESSER.) Neck: Supple, JVD not distended Respiratory: Clear to auscultation bilaterally, Normal air movement Cardiovascular: Regular rate/rhythm, Normal S1 S2 Gastrointestinal: Normal bowel sounds, No tenderness Musculoskeletal: No tenderness Integumentary: No rashes Neurological: Normal speech, Normal tone, Normal affect Lymphatics: No axilla or inguinal lymphadenopathy - Studies Microbiology Data (last 24 hrs): 11/25/20 16:35 Blood - Blood Aerobic Blood Culture - Final Staph Aureus 11/25/20 16:35 Blood - Blood Blood Culture Gram Stain - Final 11/25/20 16:35 Blood - Blood Anaerobic Blood Culture - Final Staph Aureus 11/25/20 16:35 Blood - Blood Gram Stain - Final 11/25/20 17:00 Blood - Blood Aerobic Blood Culture - Final Staph Aureus 11/25/20 17:00 Blood - Blood Blood Culture Gram Stain - Final 11/25/20 17:00 Blood - Blood Anaerobic Blood Culture - Final Staph Aureus 11/25/20 17:00 Blood - Blood Gram Stain - Final Medications List Reviewed: Yes Assessment And Plan - Current Problems (Diagnosis) (1) Cellulitis, neck Current Visit: Yes Status: Acute Plan: I ASKED DR. BRIDGES TO START VANCOMYCIN. THIS IS SEVERE INFECTION AND CAN HAVE MRSA AND OR ANEROBIC BACTERIA INFECTION FROM ORAL CAVITY. I WILL STOP CEFEPIME AND START ZOSYN IV. I TALKED TO . HE IS AWARE OF PLAN. PICC LINE 14 DAYS OF IV ABX. CONSULT DR. CUI. SHE IS NOT A SURGICAL CANDIDATE. MORE SETTLED IN L PAROTID NOW. (2) Alzheimer disease Current Visit: No Status: Chronic Plan: SEVERE CACHEXIA NON VERBAL. FAST SCORE- 7E (3) Suppurative parotitis Current Visit: Yes Status: Acute Plan: DR. POLK WANTS TO CONTINUE BOTH ABX. I WILL DO SO FOR TWO WEEKS. IMPROVED WELL AFTER 4 DOSES OF RX. SOFTER PAROTID SHE DID NOT JUMP WHEN I TOUCHED IT DC IN AM AFTER PICC LINE.
[2020-11-28] MEDS ORDERED: VANCOMYCIN 750 MG in NA CHLORIDE 0.9% 250 ML IVPB SCH (14:00)
[2020-11-28] MEDS: HALOPERIDOL LACT 5 MG/ML INJ IV PRN (14:19)
[2020-11-28] MEDS: AMPICILLIN/SULBACT 3 GM in NA CHLORIDE 0.9% 100 ML IVPB SCH ×2 (15:35→17:02)
[2020-11-28] MEDS: FENTANYL 25 MCG/PATCH TD SCH (21:02)
[2020-11-28] MEDS: MELATONIN 5 MG TABLET PO SCH (21:03)
[2020-11-29] MEDS: AMPICILLIN/SULBACT 3 GM in NA CHLORIDE 0.9% 100 ML IVPB SCH ×4 (00:46→17:24)
[2020-11-29] MEDS: MORPHINE 2 MG/ML SYR IV PRN (01:45)
[2020-11-29] MEDS: NA CHLORIDE 0.9% 1,000 ML IV SCH ×2 (03:00→12:45)
[2020-11-29] MEDS: HALOPERIDOL LACT 5 MG/ML INJ IV PRN (03:36)
[2020-11-29 06:11] LABS: Absolute Lymphocytes (CBC) 1.3 K/uL (0.7-4.9); Basophils % 0.5 % (0-1.3); Hematocrit 30.1 % (36.0-45.0); MPV 6.9 fL (7.6-11.3); RBC Red Blood Cell Count 3.37 M/uL (3.86-4.86)
[2020-11-29] MEDS: LEVOTHYROXINE SOD 0.05 MG TABLET PO SCH (06:23)
[2020-11-29 06:31] LABS: BUN Blood Urea Nitrogen 6 mg/dL (7-18); Bicarbonate 28 mmol/L (21-32); Glucose Level 108 mg/dL (74-106); Potassium 3.5 mmol/L (3.5-5.1); Sodium Level 142 mmol/L (136-145)
[2020-11-29] MEDS ORDERED: KCL 20 MEQ/100 mL IVPB 20 MEQ/100 ML BAG IV SCH (07:00)
[2020-11-29] MEDS: FLUOXETINE 10 MG CAP PO SCH (09:39)
[2020-11-29] MEDS: ENOXAPARIN 40 MG/0.4 ML SQ SCH (09:39)
[2020-11-29] MEDS: LACTULOSE 20 GM/30 ML UCUP PO SCH (09:46)
[2020-11-29] MEDS: HALOPERIDOL LACT 5 MG/ML INJ IV SCH ×2 (09:46→21:26)
[2020-11-29] MEDS ORDERED: VANCOMYCIN 750 MG in NA CHLORIDE 0.9% 150 ML IVPB SCH ×2 (13:00→21:00)
[2020-11-29] MEDS: VANCOMYCIN 750 MG in NA CHLORIDE 0.9% 250 ML IVPB SCH ×2 (14:12→21:26)
--- NOTE | 2020-11-29 15:14 | P.OP ---
Preoperative diagnosis: Need for Correction Antibiotics Postoperative diagnosis: Need for Environmental Health And Safety Leader Antibiotics Primary procedure: Placement of LEFT Femoral Central Venous Catheter Secondary procedure: microintroducer used Anesthesia: Lidocaine 1% Estimated blood loss: <5cc Specimen: none Findings: catheter tristin back and flushed well Complications: None Implants: Triple lumen central venous catheter Transferred to: Other (Floor Bed) Condition: Good
--- NOTE | 2020-11-29 19:52 | CON ---
Date of Consultation: 11/29/2020 Reason For Consultation: Central venous catheter for long-term antibiotics. Brief History Of Present Illness: The patient is a severely demented woman, on hospice for dementia and cachexia, who developed symptoms of pain, fever, nausea, and was admitted to the hospital on 11/08 9. She was found to have a large area of cellulitis around the neck involving both sides of her neck as well as chest wall covering all of the vascular access points with cellulitis. She had been resp onsive to treatment with some improvement and is in need of long-term IV antibiotics; however, the PI CC line was unsuccessful due to the patient's contractures. As such, I am consulted for placement of a central venous catheter. Information is obtained from the patient's chart and [facility] and the medical record as the patient is nonverbal. Past Medical History: Significant for Alzheimer dementia, thyroid disease. Past Surgical History: Includes a lumpectomy of the breast. Allergies: NO KNOWN DRUG ALLERGIES. Home Medications: Include Prozac, Ativan, lactulose, Synthroid, melatonin, morphine oral, and Haldol . Social History: There is no history of smoking, alcohol, recreational drug use. Review of Systems: Ten point review of systems unable to obtain due to the patient's mentation. Physical Examination: Vital Signs: Stable during my examination. General: She is confused, disoriented. HEENT: She has cellulitis extending from her chin area all the way to both chest arroyo bilaterally. Neck: There is no JVD otherwise. Lungs: She is clear to auscultation bilaterally. Extremities: She has palpable pulses in her groins quite easily. She is very thin and cachectic and makes palpation of anatomical landmarks quite easily. Assessment And Plan: This is an 80-year-old woman with severe dementia, who needs vascular access. I have explained the risks, benefits, and alternatives of placement of femoral central venous cathete r as I did not want to place a central venous catheter through possible infected cellulitic skin of t he subclavian or internal jugular position. As such, I will place a left femoral central venous cath eter for long-term antibiotics. I have explained the risks, benefits, and alternatives including, bu t limited to bleeding, infection, damage to surrounding tissues, need for further operation and proce dures to the patient's . They agreed to proceed as indicated. Thank you for this interesting consult. KAREN Voice ID: [id number] Report ID: [id number]
[2020-11-29] MEDS: MELATONIN 5 MG TABLET PO SCH (21:25)
--- NOTE | 2020-11-29 21:32 | P.PN ---
Subjective Date of Service: 11/29/20 Chief Complaint: L SIDE NECK PAIN, SWELLING, FEVER, NAUSEA, VOMITING Subjective: No C/O voiced, Demented (NON VERBAL.) SHE HAS IMPROVED SOMEWHAT. STILL VERY MUCH IN PAIN IN THE L PAROTID. SHE IS NOT MUCH IN PAIN. Physical Examination - Vital Signs Temperature: 98 F Blood Pressure: 130/62 Pulse: 75 Respirations: 19 Pulse Ox (%): 97 - Physical Exam General: Moderate distress, Confused ( FAST SCORE MORE THAN 7.) HEENT: Other (PAROTID GLAND IS MORE TENDER TODAY. ) Neck: Supple, JVD not distended Respiratory: Clear to auscultation bilaterally, Normal air movement Cardiovascular: Regular rate/rhythm, Normal S1 S2 Gastrointestinal: Normal bowel sounds, No tenderness Musculoskeletal: No tenderness Integumentary: No rashes Neurological: Normal speech, Normal tone, Normal affect Lymphatics: No axilla or inguinal lymphadenopathy - Studies Medications List Reviewed: Yes Assessment And Plan - Current Problems (Diagnosis) (1) Cellulitis, neck Current Visit: Yes Status: Acute Plan: I ASKED DR. BRIDGES TO START VANCOMYCIN. THIS IS SEVERE INFECTION AND CAN HAVE MRSA AND OR ANEROBIC BACTERIA INFECTION FROM ORAL CAVITY. I WILL STOP CEFEPIME AND START ZOSYN IV. I TALKED TO . HE IS AWARE OF PLAN. PICC LINE 14 DAYS OF IV ABX. CONSULT DR. CUI. SHE IS NOT A SURGICAL CANDIDATE. MORE SETTLED IN L PAROTID NOW. (2) Alzheimer disease Current Visit: No Status: Chronic Plan: SEVERE CACHEXIA NON VERBAL. FAST SCORE- 7E (3) Suppurative parotitis Current Visit: Yes Status: Acute Plan: DR. POLK WANTS TO CONTINUE BOTH ABX. I WILL DO SO FOR TWO WEEKS. IMPROVED WELL AFTER 4 DOSES OF RX. SOFTER PAROTID SHE DID NOT JUMP WHEN I TOUCHED IT DC IN AM AFTER PICC LINE. PAROTITIS SEEMS MORE TENDER TODAY AND SHE VINCED COMPARED TO YESTERDAY WHEN WE STOPPED VANCOMYCIN. HE WBC IS HIGHER. I WILL RESTART VANCOMYCIN IV. TALKED TO SO HE CAN GET CONSENT.
[2020-11-30] MEDS: AMPICILLIN/SULBACT 3 GM in NA CHLORIDE 0.9% 100 ML IVPB SCH ×4 (01:05→17:55)
[2020-11-30] MEDS: MORPHINE 2 MG/ML SYR IV PRN ×2 (02:48→17:55)
[2020-11-30] MEDS: NA CHLORIDE 0.9% 1,000 ML IV SCH ×2 (02:49→17:55)
--- NOTE | 2020-11-30 03:36 | OP ---
Date of Procedure: 11/29/2020 Surgeon: Jason Garza MD, Preoperative Diagnosis: Need for long-term antibiotics. Postoperative Diagnosis: Need for long-term antibiotics. Procedures Performed: Placement of left femoral central venous catheter using micro introducer set. Anesthesia: Local 1% lidocaine used. Estimated Blood Loss: Less than 5 mL. Specimen: None. Findings: Catheter tristin back and flushed well. Complications: None. Implants: Triple-lumen central venous catheter. Disposition: The patient remained on floor bed in good condition throughout the procedure. Procedure In Detail: After informed consent was obtained from the patient's , the patient was prepped and draped in the usual sterile fashion after adequate anesthesia achieved. Using anatomic landmarks, I cannulated the left femoral vein on the first attempt. Dark red nonpulsatile blood was returned using a microintroducer set. I then advanced microwire at this point. The needle was remov ed, and I made a small parag incision overlying the insertion site. At this point, I put the microint roducer sheath in place and micro wire was removed. Micro introducer sheath returned a dark red nonp ulsatile blood and then I advanced the standard wire through the introducer sheath. At this point, I performed dilatation of the tract using Seldinger technique and advanced the catheter into the femor al vein without evidence of complication. The wire was then removed for the second time. Wire was c alled, at this point, I tristin back dark red nonpulsatile blood from all 3 ports and then flushed the c atheter quite easily with sterile saline and this catheter was then secured to the skin with the 2-0 nylon suture in the set and a sterile dressing placed over top. The patient tolerated the procedure well without evidence of complication, remained in the room throughout the procedure in good conditio n. All counts were correct at the end of the case. TK/MODL Voice ID: [id number] Report ID: [id number]
[2020-11-30 03:58] LABS: Urine Appearance CLEAR (Clear); Urine Bilirubin NEGATIVE (Negative); Urine Blood 1+ (Negative); Urine Color YELLOW (Yellow); Urine Glucose NEGATIVE (Negative); Urine Protein NEGATIVE (Negative); Urine Specific Gravity 1.025 (1.005-1.030)
[2020-11-30 05:44] LABS: Urine Bacteria <20 /HPF (<20); Urine Urothelial Cells <5 /HPF (NONE SEEN)
[2020-11-30 06:06] LABS: Absolute Lymphocytes (CBC) 1.2 K/uL (0.7-4.9); Basophils % 0.6 % (0-1.3); Hematocrit 31.9 % (36.0-45.0); Lymphocytes % 7.6 % (15.3-44.8); RBC Red Blood Cell Count 3.53 M/uL (3.86-4.86)
[2020-11-30] MEDS: LEVOTHYROXINE SOD 0.05 MG TABLET PO SCH ×2 (06:15→06:30)
[2020-11-30 06:22] LABS: BUN Blood Urea Nitrogen 5 mg/dL (7-18); Bicarbonate 31 mmol/L (21-32); Glucose Level 110 mg/dL (74-106); Potassium 3.3 mmol/L (3.5-5.1); Sodium Level 145 mmol/L (136-145)
[2020-11-30] MEDS ORDERED: SODIUM CHLORIDE 0.9% 10ML INJ IV PRN (08:55)
[2020-11-30] MEDS: ENOXAPARIN 40 MG/0.4 ML SQ SCH (09:56)
[2020-11-30] MEDS: HALOPERIDOL LACT 5 MG/ML INJ IV SCH ×2 (09:56→20:29)
[2020-11-30] MEDS: LACTULOSE 20 GM/30 ML UCUP PO SCH (09:56)
[2020-11-30] MEDS: ONDANSETRON 4 MG/2 ML VIAL IV PRN (09:56)
[2020-11-30] MEDS: PANTOPRAZOLE 40 MG INJ IVP SCH (09:57)
[2020-11-30] MEDS: FLUOXETINE 10 MG CAP PO SCH (09:59)
[2020-11-30] MEDS: VANCOMYCIN 750 MG in NA CHLORIDE 0.9% 250 ML IVPB SCH ×2 (09:59→21:13)
[2020-11-30] MEDS: MELATONIN 5 MG TABLET PO SCH (20:28)
--- NOTE | 2020-11-30 21:36 | P.PN ---
Subjective Date of Service: 11/30/20 Chief Complaint: L SIDE NECK PAIN, SWELLING, FEVER, NAUSEA, VOMITING Subjective: Improving SHE HAS IMPROVED SOMEWHAT. STILL VERY MUCH IN PAIN IN THE L PAROTID. SHE IS NOT MUCH IN PAIN. SHE ONCE AGAIN AFTER BEING ON VANCOMYCIN HAS IMPROVED GREATLY AFTER GETTING WORSE YESTERDAY. WBC IS STILL LAGGING. I SUSPECT IT WILL BE BETTER IN AM. Review of Systems 10-point ROS is otherwise unremarkable General: Weakness, Malaise Integumentary: As per HPI Physical Examination - Vital Signs Temperature: 97.4 F Blood Pressure: 119/62 Pulse: 85 Respirations: 17 Pulse Ox (%): 94 - Physical Exam General: Mild distress, Confused HEENT: Atraumatic, PERRLA, EOMI Neck: Supple, JVD not distended Respiratory: Clear to auscultation bilaterally, Normal air movement Cardiovascular: Regular rate/rhythm, Normal S1 S2 Gastrointestinal: Normal bowel sounds, No tenderness Musculoskeletal: No tenderness Integumentary: No rashes Neurological: Abnormal speech (NON VERBAL.), Dementia (CONTRACTURES ALL OVER.) Lymphatics: No axilla or inguinal lymphadenopathy - Studies Medications List Reviewed: Yes Assessment And Plan - Current Problems (Diagnosis) (1) Cellulitis, neck Current Visit: Yes Status: Acute Plan: I ASKED DR. BRIDGES TO START VANCOMYCIN. THIS IS SEVERE INFECTION AND CAN HAVE MRSA AND OR ANEROBIC BACTERIA INFECTION FROM ORAL CAVITY. I WILL STOP CEFEPIME AND START ZOSYN IV. I TALKED TO . HE IS AWARE OF PLAN. PICC LINE 14 DAYS OF IV ABX. CONSULT DR. CUI. SHE IS NOT A SURGICAL CANDIDATE. MORE SETTLED IN L PAROTID NOW. (2) Alzheimer disease Current Visit: No Status: Chronic Plan: SEVERE CACHEXIA NON VERBAL. FAST SCORE- 7E (3) Suppurative parotitis Current Visit: Yes Status: Acute Plan: DR. POLK WANTS TO CONTINUE BOTH ABX. I WILL DO SO FOR TWO WEEKS. IMPROVED WELL AFTER 4 DOSES OF RX. SOFTER PAROTID SHE DID NOT JUMP WHEN I TOUCHED IT DC IN AM AFTER PICC LINE. PAROTITIS SEEMS MORE TENDER TODAY AND SHE VINCED COMPARED TO YESTERDAY WHEN WE STOPPED VANCOMYCIN. HE WBC IS HIGHER. I WILL RESTART VANCOMYCIN IV. TALKED TO SO HE CAN GET CONSENT. VANCOMYICN ALONE SHOULD SUFFICE. UNASYN FAILED TO CONTROL THE INFECTION. (4) UTI (urinary tract infection) Current Visit: Yes Status: Acute Plan: ST CATH URINE IS NEGATIVE. PSEUDOMONAS CULTURE WAS MOST LIKELY FALSE POSITIVE.
[2020-12-01] MEDS: MORPHINE 2 MG/ML SYR IV PRN ×2 (05:04→17:26)
[2020-12-01 05:10] LABS: Absolute Lymphocytes (CBC) 1.4 K/uL (0.7-4.9); Basophils % 0.5 % (0-1.3); Hematocrit 30.1 % (36.0-45.0); Lymphocytes % 8.1 % (15.3-44.8); MPV 6.8 fL (7.6-11.3); RBC Red Blood Cell Count 3.34 M/uL (3.86-4.86)
[2020-12-01 05:25] LABS: BUN Blood Urea Nitrogen 7 mg/dL (7-18); Bicarbonate 30 mmol/L (21-32); Glucose Level 97 mg/dL (74-106); Sodium Level 146 mmol/L (136-145)
[2020-12-01] MEDS: LEVOTHYROXINE SOD 0.05 MG TABLET PO SCH (06:14)
[2020-12-01] MEDS: HALOPERIDOL LACT 5 MG/ML INJ IV SCH ×2 (06:18→20:40)
[2020-12-01] MEDS: KCL 20 MEQ/100 mL IVPB 20 MEQ/100 ML BAG IV SCH ×3 (06:24→23:29)
[2020-12-01] MEDS: NA CHLORIDE 0.9% 1,000 ML IV SCH ×2 (06:33→20:39)
[2020-12-01] MEDS ORDERED: Meropenem 500 MG/100 ML BAG IV SCH (09:00)
[2020-12-01] MEDS: LACTULOSE 20 GM/30 ML UCUP PO SCH (09:26)
[2020-12-01] MEDS: Meropenem 1 GM/100 ML BAG IV SCH ×2 (09:28→17:27)
[2020-12-01] MEDS: FLUOXETINE 10 MG CAP PO SCH (09:28)
[2020-12-01] MEDS: VANCOMYCIN 750 MG in NA CHLORIDE 0.9% 250 ML IVPB SCH ×2 (09:28→17:27)
[2020-12-01] MEDS: PANTOPRAZOLE 40 MG INJ IVP SCH (09:28)
[2020-12-01] MEDS: ENOXAPARIN 40 MG/0.4 ML SQ SCH (09:28)
[2020-12-01] MEDS: ONDANSETRON 4 MG/2 ML VIAL IV PRN ×2 (13:47→21:16)
--- NOTE | 2020-12-01 18:03 | P.PN ---
Subjective Date of Service: 12/01/20 Chief Complaint: L SIDE NECK PAIN, SWELLING, FEVER, NAUSEA, VOMITING Subjective: C/O voiced ASKS THAT SHE HAS NOT HAD BM FOR A WEEK. I SEE A LITTLE MORE DISCOMFORT ON PALPATION OF L PAROTID REGION. Physical Examination - Vital Signs Temperature: 97.4 F Blood Pressure: 131/83 Pulse: 119 Respirations: 18 Pulse Ox (%): 94 - Physical Exam General: Cachectic, Confused HEENT: Atraumatic, PERRLA, Other (TENDER PAROTID, LOT BETTER BUT STILL SIGNIFICANT.), EOMI Neck: Supple, JVD not distended Respiratory: Clear to auscultation bilaterally, Normal air movement Cardiovascular: Regular rate/rhythm, Normal S1 S2 Gastrointestinal: Normal bowel sounds, No tenderness Musculoskeletal: No tenderness Integumentary: No rashes Neurological: Dementia (SEVERE.) Lymphatics: No axilla or inguinal lymphadenopathy - Studies Medications List Reviewed: Yes Assessment And Plan - Current Problems (Diagnosis) (1) Cellulitis, neck Current Visit: Yes Status: Acute Plan: I ASKED DR. BRIDGES TO START VANCOMYCIN. THIS IS SEVERE INFECTION AND CAN HAVE MRSA AND OR ANEROBIC BACTERIA INFECTION FROM ORAL CAVITY. I WILL STOP CEFEPIME AND START ZOSYN IV. I TALKED TO . HE IS AWARE OF PLAN. PICC LINE 14 DAYS OF IV ABX. CONSULT DR. CUI. SHE IS NOT A SURGICAL CANDIDATE. MORE SETTLED IN L PAROTID NOW. (2) Alzheimer disease Current Visit: No Status: Chronic Plan: SEVERE CACHEXIA NON VERBAL. FAST SCORE- 7E (3) Suppurative parotitis Current Visit: Yes Status: Acute Plan: I HAD TO START ON MERREM VANCOMYCIN ALONE OR WITH UNASYN DID NOT CONTROL HER WBC COUNT. DOING SECOND SET OF BLOOD CULTURE IS NOT GOING TO HELP. AT TIMES WE HAVE TO MAKE A CLINICAL DECISION WITHOUT OBEJECTIVE EVIDENCE. THIS IS ONE. THE SEVERITY OF INFLAMMATION SUGGESTED MRSA LIKE INFECTION BUT ALSO ORAL BACTERIA NEED ANEROBIC COVERAGE AND UNFORTUNATELY UNASYN DID NOT PROVIDE THAT. WE MUST ADD MERREM TO CONTROL INFECTION. SHE IS SEVERELY DEMENTED LADY BUT STILL WE CAN'T IGNORE THE INFECTION SHE HAS. (4) UTI (urinary tract infection) Current Visit: Yes Status: Acute Plan: ST CATH URINE IS NEGATIVE. PSEUDOMONAS CULTURE WAS MOST LIKELY FALSE POSITIVE.
[2020-12-01] MEDS: HALOPERIDOL LACT 5 MG/ML INJ IV PRN ×2 (18:17→22:33)
[2020-12-01] MEDS: MELATONIN 5 MG TABLET PO SCH (20:39)
[2020-12-01] MEDS: FENTANYL 25 MCG/PATCH TD SCH (22:33)
[2020-12-02] MEDS: VANCOMYCIN 750 MG in NA CHLORIDE 0.9% 250 ML IVPB SCH ×2 (01:09→10:50)
[2020-12-02] MEDS: Meropenem 1 GM/100 ML BAG IV SCH ×2 (01:10→10:50)
[2020-12-02] MEDS: KCL 20 MEQ/100 mL IVPB 20 MEQ/100 ML BAG IV SCH ×2 (01:38→03:54)
[2020-12-02] MEDS: ONDANSETRON 4 MG/2 ML VIAL IV PRN (05:23)
[2020-12-02] MEDS: HALOPERIDOL LACT 5 MG/ML INJ IV PRN (05:23)
[2020-12-02] MEDS: LEVOTHYROXINE SOD 0.05 MG TABLET PO SCH (05:57)
[2020-12-02] MEDS ORDERED: NA CHLORIDE 0.9% 1,000 ML IV SCH (07:19)
[2020-12-02 08:35] LABS: Absolute Lymphocytes (CBC) 1.1 K/uL (0.7-4.9); Basophils % 0.3 % (0-1.3); Lymphocytes % 7.2 % (15.3-44.8); MPV 6.9 fL (7.6-11.3); RBC Red Blood Cell Count 3.38 M/uL (3.86-4.86)
[2020-12-02 08:48] LABS: BUN Blood Urea Nitrogen 4 mg/dL (7-18); Bicarbonate 28 mmol/L (21-32); Glucose Level 100 mg/dL (74-106); Magnesium 1.6 mg/dL (1.8-2.4); Potassium 3.5 mmol/L (3.5-5.1); Sodium Level 142 mmol/L (136-145)
[2020-12-02] MEDS ORDERED: POTASSIUM 25 MEQ EFFERV TAB PO SCH (09:00)
[2020-12-02] MEDS: LACTULOSE 20 GM/30 ML UCUP PO SCH (09:00)
[2020-12-02] MEDS: FLUOXETINE 10 MG CAP PO SCH (09:00)
[2020-12-02] MEDS: ENOXAPARIN 40 MG/0.4 ML SQ SCH (09:54)
[2020-12-02] MEDS: HALOPERIDOL LACT 5 MG/ML INJ IV SCH (09:55)
[2020-12-02] MEDS: PANTOPRAZOLE 40 MG INJ IVP SCH (09:55)
[2020-12-02 10:31] VITALS: O2SAT 96
--- NOTE | 2020-12-02 10:51 | RAD REPORT ---
EXAM DESCRIPTION: CTAbdomen Pelvis W Contrast - 12/02/2020 10:17 am CLINICAL HISTORY: Abdominal pain. vomiting/pain COMPARISON: No comparisons TECHNIQUE: Biphasic CT imaging of the abdomen and pelvis was performed with 100 ml non-ionic IV cont rast. All CT scans are performed using dose optimization technique as appropriate and may include automated exposure control or mA/KV adjustment according to patient size. FINDINGS: Small bilateral pleural effusions with opacities in both lung bases which probably represe nt infiltrate/developing pneumonia. The liver, spleen, pancreas, adrenal glands and kidneys are within normal limits. Mild free fluid is seen in the abdomen and pelvis. Small air bubble is present in the right upper jaelyn drant likely a small amount of pneumoperitoneum. The stomach and numerous small bowel loops in the up per and mid abdomen are significantly dilated compatible with a mechanical small-bowel obstruction. E xact location of a transition point is not well discerned. Prominent stool is seen in the rectosigmo id colon with diverticulosis present. Chronic deformity of the right hip is present. IMPRESSION: A moderately severe mechanical small bowel obstruction is present. Small single air bubb le in the right upper quadrant has the appearance of pneumoperitoneum.
--- NOTE | 2020-12-02 14:06 | RAD REPORT ---
EXAM DESCRIPTION: RAD - Chest Single View - 12/02/2020 2:00 pm CLINICAL HISTORY: confirm NGT placement Chest pain. COMPARISON: Chest Single View dated 11/25/2020; Chest Single View dated 01/24/2020 FINDINGS: Portable technique limits examination quality. Tip of the enteric tube is in the right lower lobe bronchus. Second floor was notified.
[2020-12-02] MEDS ORDERED: HYDROMORPHONE HCL 1 MG/ML INJ IV PRN (14:19)
[2020-12-02] MEDS ORDERED: ALTEPLASE 2 MG/VIAL IV SCH (15:00)
--- NOTE | 2020-12-02 15:01 | RAD REPORT ---
EXAM DESCRIPTION: RAD - Chest Single View - 12/02/2020 2:50 pm CLINICAL HISTORY: confirm placement of new NGT Chest pain. COMPARISON: Chest Single View dated 12/02/2020; Chest Single View dated 11/25/2020; Chest Single View dated 01/24/2020 FINDINGS: Enteric tube is again present in the right lower lobe bronchus. Recommend removal.
--- NOTE | 2020-12-02 16:24 | P.DS ---
Admission Date: 11/25/20 Discharge Date: 12/02/20 Disposition: HOSPICE-MEDICAL FACILITY Discharge Condition: SERIOUS Reason for Admission: L SIDE NECK PAIN, SWELLING, FEVER, NAUSEA, VOMITING - Problems (1) Cellulitis, neck Current Visit: Yes Status: Acute (2) Alzheimer disease Current Visit: No Status: Chronic (3) Suppurative parotitis Current Visit: Yes Status: Acute (4) UTI (urinary tract infection) Current Visit: Yes Status: Acute (5) Bowel perforation Current Visit: Yes Status: Acute Brief History of Present Illness: JOSÉ MANUEL IS SEVERELY DEMENTED LADY WHO WAS ON HOSPICE FOR DEMENTIA, CACHEXIA ETC, DEVELOPED SYMPTOMS WITH PAIN, FEVER, NAUSEA ABOVE. SH HAS LARGE AREA OF CELLULITIS, INDURATION, SEVERE TENDERNESS ON L SIDE UPPER NECK AND IS ADMITTED FOR IT. THIS IS DIAGNOSIS NOT RELATED TO HOSPICE. Hospital Course: JOSÉ MANUEL IS SEVERELY DEMENTED LADY WITH SEVERE L PAROTID INFECTION WHO INITIALLY IMPROVED ON VANCOMYCIN AND ZOSYN, LATER GOT WORSE WITH WBC RISING IN NUMBER. SHE STARTED TO VOMIT DAILY AND WAS CONSTIPATED FOR 7 DAYS. ENEMA WORKED BUT VOMITING CONTINUED. ABDOMEN STAYED SOFT. I ORDERED CT ABDOMEN WITH CONTRAST AND FOUND A NEW PROBLEM THAT IS BOWEL OBSTRUCTION WITH PERFORATION. TODAY I TALKED TO TWICE AND HE IS READY TO GET HER COMFORTABLE AND STOP AGGRESSIVE MEASURES SHE IS NOW TERMINAL AND NOT A SURGICAL CANDIDATE. I CALLED TANISHA MURILLO , [facility] AND ADMITTED TO INPATIENT HOSPICE. Vital Signs/Physical Exam: Temp Pulse Resp BP Pulse Ox 99.7 F 100 H 18 140/73 95 12/02/20 08:00 12/02/20 08:00 12/02/20 15:17 12/02/20 08:00 12/02/20 15:17 General: Cachectic, Moderate distress, Confused Respiratory: Diminished Gastrointestinal: Non-distended, No tenderness Laboratory Data at Discharge: WBC 14.90 K/uL (4.3-10.9) H 12/02/20 08:15 Hgb 10.0 g/dL (12.0-15.0) L 12/02/20 08:15 Hct 30.0 % (36.0-45.0) L 12/02/20 08:15 Plt Count 601 K/uL (152-406) H 12/02/20 08:15 PT 12.9 SECONDS (9.5-12.5) H 11/25/20 16:35 INR 1.12 11/25/20 16:35 APTT 26.0 SECONDS (24.3-36.9) 11/25/20 16:35 Sodium 142 mmol/L (136-145) 12/02/20 08:15 Potassium 3.5 mmol/L (3.5-5.1) 12/02/20 08:15 BUN 4 mg/dL (7-18) L 12/02/20 08:15 Creatinine 0.29 mg/dL (0.55-1.3) L 12/02/20 08:15 Glucose 100 mg/dL (74-106) 12/02/20 08:15 Magnesium 1.6 mg/dL (1.8-2.4) L D 12/02/20 08:15 Total Bilirubin 0.7 mg/dL (0.2-1.0) 11/25/20 16:35 AST 19 U/L (15-37) 11/25/20 16:35 ALT 19 U/L (12-78) 11/25/20 16:35 Alkaline Phosphatase 94 U/L (45-117) 11/25/20 16:35 Amylase 332 U/L (25-115) H* 11/25/20 16:35 Lipase 62 U/L (73-393) L 11/25/20 16:35 Home Medications: Fluoxetine HCl [Prozac] 10 mg PO DAILY 01/24/20 LORazepam [Ativan] 1 tab PO Q2H PRN 01/24/20 Lactulose 10 gm PO DAILY 01/24/20 Levothyroxine [Synthroid] 50 mcg PO DAILY 01/24/20 Melatonin 10 mg PO DAILY 01/24/20 Morphine Oral Syrup [Morphine Oral Syrup*] 1 ml PO Q2H PRN 01/24/20 haloperidoL [Haldol] 2 mg PO TID 01/24/20 Followup: Joey Fuchs MD [Primary Care Provider] -
[2020-12-02 18:12] VITALS: BP 108/64; TEMP 97.7
== END 2020-12-02 16:25 | disposition hospice, inpatient (51) | DRG 871 ==
LOC: ER 16:09 → ERHOLD 19:16 → 2ND 22:20
PROVIDERS: ADMIT Internal Medicine; ATTEND Internal Medicine
PROC: 06HN33Z Insertion of Infusion Device into Left Femoral Vein, Percutaneous Approach (ICD-10-PCS; principal; 2020-11-29)
DX: A41.9 Sepsis, unspecified organism (principal); K63.1 Perforation of intestine (nontraumatic); E43 Unspecified severe protein-calorie malnutrition; L03.221 Cellulitis of neck; K56.609 Unspecified intestinal obstruction, unspecified as to partial versus complete obstruction; Z68.1 Body mass index [BMI] 19.9 or less, adult; R64 Cachexia; J39.1 Other abscess of pharynx; G30.9 Alzheimer's disease, unspecified; F02.80 Dementia in other diseases classified elsewhere, unspecified severity, without behavioral disturbance, psychotic disturbance, mood disturbance, and anxiety; K11.21 Acute sialoadenitis; L89.311 Pressure ulcer of right buttock, stage 1; L89.151 Pressure ulcer of sacral region, stage 1; E03.9 Hypothyroidism, unspecified; Z20.822 Contact with and (suspected) exposure to COVID-19
CPT/HCPCS: 36415; 51702; 70491; 71045; 74177; 80048; 80076; 80202; 81001; 81003; 81015; 82150; 82550; 82553; 82565; 82947; 83605; 83690; 83735; 84132; 84145; 84484; 85025; 85610; 85730; 87040; 87077; 87086; 87088; 87186; 87205; 92610; 93005; 96365; 96366; 96375; 99285; C9113; J0295; J0692; J1170; J1630; J1650; J2185; J2270; J2405; J2543; J2997; J3370; J3480; J7030; J7040; J7050; Q9967; U0003

== ENCOUNTER 2020-12-02 16:28 | Inpatient (IN) | payer OTHER ==
[2020-12-02] MEDS ORDERED: PROMETHAZINE INJ 25 MG/ML AMP IV PRN (16:35)
[2020-12-02] MEDS ORDERED: ONDANSETRON 4 MG/2 ML VIAL IV PRN (16:35)
[2020-12-02] MEDS ORDERED: LORazepam 2 MG/ML VIAL IV PRN (16:35)
[2020-12-02] MEDS ORDERED: HYDROMORPHONE HCL 1 MG/ML INJ IV PRN (16:35)
[2020-12-02] MEDS: D5 0.45 NS 1,000 ML IV SCH (18:35)
[2020-12-02] MEDS: HYDROMORPHONE HCL 1 MG/ML INJ IV SCH ×3 (19:30→23:25)
[2020-12-02 20:12] VITALS: BMI 17.2
[2020-12-02] MEDS: LORazepam 2 MG/ML VIAL IV SCH ×2 (20:16→21:54)
[2020-12-03] MEDS: LORazepam 2 MG/ML VIAL IV SCH ×12 (00:07→23:00)
[2020-12-03] MEDS: HYDROMORPHONE HCL 1 MG/ML INJ IV SCH ×11 (01:23→22:59)
[2020-12-03 07:52] VITALS: O2SAT 95
--- NOTE | 2020-12-03 10:46 | P.HP ---
Certification for Inpatient Patient admitted to: Inpatient With expected LOS: >2 Midnights Practitioner: I am a practitioner with admitting privileges, knowledge of patient current condition, hospital course, and medical plan of care. Services: Services provided to patient in accordance with Admission requirements found in Title 42 Section 412.3 of the Code of Federal Regulations Patient History Date of Service: 12/03/20 Reason for admission: HOSPICE CARE FOR BOWEL PERFORATION History of Present Illness: JOSÉ MANUEL IS SEVERELY DEMENTED AND CACHECTIC LADY WHO INITIALLY COMES FOR SEVERE INFECTION OF L SIDE OF NECK , THAT WAS ORIGINATING FROM L PAROTID. SHE HAD A LARGE INDURATED ABSCESS, IMPROVED ON VANCOMYCIN AND LATER MERREM. SHE STARTED TO HAVE VOMITING LAST TWO DAYS AND I STRATED HER ON PROTONIX AND ZOFRAN WITH A POSSIBILITY OF ULCER. SHE NEVER HAD ANY ABDOMEN PAIN OR DISTENSION. SHE HAD A LARGE BM AFTER ENEMA. SHE CONTINUED TO VOMIT SO I DID CT SCAN OF ABDOMEN TO R EVEAL BOWEL OBSTRUCTION WITH PERFORATION. THIS IS NOW A TERMINAL DIAGNOSIS FOR HER SHE IS NOT A SURGICAL CANDIDATE. YENY AGREED AND WE PLACED HER ON INPATIENT HOSPICE FOR COMFORT CARE. SHE IS PAINFREE, THIS AM SHE IS ALREADY HAVING HYPOTENSION AND LONG PAUSES IN BREATHING. Allergies No Known Allergies Allergy (Verified 01/24/20 19:48) Home medications list reviewed: Yes Home Medications: Fluoxetine HCl [Prozac] 10 mg PO DAILY 01/24/20 LORazepam [Ativan] 1 tab PO Q2H PRN 01/24/20 Lactulose 10 gm PO DAILY 01/24/20 Levothyroxine [Synthroid] 50 mcg PO DAILY 01/24/20 Melatonin 10 mg PO DAILY 01/24/20 Morphine Oral Syrup [Morphine Oral Syrup*] 1 ml PO Q2H PRN 01/24/20 haloperidoL [Haldol] 2 mg PO TID 01/24/20 - Past Medical/Surgical History Diabetic: No -: alziemer disease -: thyroid disease -: breast lump removal - Social History Smoking Status: Never smoker Alcohol use: No CD- Drugs: No Review of Systems is unable to be obtained Physical Examination - Vital Signs Temperature: 97.7 F Blood Pressure: 85/49 Pulse: 75 Respirations: 16 Pulse Ox (%): 94 - Physical Exam General: Unresponsive (TO PAINFUL STIMULUS. DEEP BREATHS FOLLOWED BY LONG PAUSES. ), Comatose Cardiovascular: Normal S1 S2 (TACHY.) Gastrointestinal: No tenderness Assessment and Plan - Problems (Diagnosis) (1) Bowel perforation Current Visit: No Status: Acute Plan: SHE SHOULD NOT HAVE MORE THAN A COUPLE DAYS TO LIVE. SHE IS ALREADY STARTING TO HAVE RESPIRATORY MOVEMENTS THAT ARE TERMINAL. SHE IS COMATOSE AND PAINFREE. THAT IS THE MAIN CONCERN OF TO KEEP HER PAINFREE. HE IS AT BEDSIDE AND CONTENT. (2) Alzheimer disease Current Visit: No Status: Chronic - Advance Directives Does patient have a Living Will: Yes Does patient have a Durable POA for Healthcare: Yes
[2020-12-03] MEDS: D5 0.45 NS 1,000 ML IV SCH (23:32)
[2020-12-04] MEDS: LORazepam 2 MG/ML VIAL IV SCH ×12 (01:46→23:31)
[2020-12-04] MEDS: HYDROMORPHONE HCL 1 MG/ML INJ IV SCH ×13 (01:46→23:30)
[2020-12-04] MEDS: SCOPOLAMINE HYDROBROMIDE PATCH TD SCH (10:27)
--- NOTE | 2020-12-04 13:15 | P.PN ---
Subjective Date of Service: 12/04/20 Chief Complaint: HOSPICE CARE FOR BOWEL PERFORATION Subjective: Worsening COMATOSE. Physical Examination - Vital Signs Temperature: 99.2 F Blood Pressure: 106/53 Pulse: 98 Respirations: 22 Pulse Ox (%): 69 - Physical Exam General: Comatose Respiratory: Other (RAPID AND SHALLOW BREATHS FOLLOWED BY LONG PAUSES ) Assessment And Plan - Current Problems (Diagnosis) (1) Bowel perforation Current Visit: No Status: Acute Plan: SHE SHOULD NOT HAVE MORE THAN A COUPLE DAYS TO LIVE. SHE IS ALREADY STARTING TO HAVE RESPIRATORY MOVEMENTS THAT ARE TERMINAL. SHE IS COMATOSE AND PAINFREE. THAT IS THE MAIN CONCERN OF TO KEEP HER PAINFREE. HE IS AT BEDSIDE AND CONTENT. IT IS A MATTER OF TIME NOW. SHE HAD SECRETIONS LAST NIGHT START SCOP PATCHES TODAY. (2) Alzheimer disease Current Visit: No Status: Chronic
[2020-12-05] MEDS: HYDROMORPHONE HCL 1 MG/ML INJ IV SCH ×12 (01:44→23:49)
[2020-12-05] MEDS: LORazepam 2 MG/ML VIAL IV SCH ×13 (01:44→23:49)
[2020-12-05] MEDS: D5 0.45 NS 1,000 ML IV SCH (06:16)
--- NOTE | 2020-12-05 12:56 | P.PN ---
Subjective Date of Service: 12/05/20 Chief Complaint: HOSPICE CARE FOR BOWEL PERFORATION Subjective: Worsening COMATOSE. MS UMANA CONTINUES TO BREATH RAPIDLY AND IS SEVERELY HYPOXIC. IS AT BEDSIDE AND CONTENT. SHE SHOULD PASS ANY MINUTE. Physical Examination - Vital Signs Temperature: 100.6 F Blood Pressure: 105/50 Pulse: 110 Respirations: 24 Pulse Ox (%): 49 - Physical Exam General: Cachectic, Moderate distress Respiratory: Diminished Assessment And Plan - Current Problems (Diagnosis) (1) Bowel perforation Current Visit: No Status: Acute Plan: SHE SHOULD NOT HAVE MORE THAN A COUPLE DAYS TO LIVE. SHE IS ALREADY STARTING TO HAVE RESPIRATORY MOVEMENTS THAT ARE TERMINAL. SHE IS COMATOSE AND PAINFREE. THAT IS THE MAIN CONCERN OF TO KEEP HER PAINFREE. HE IS AT BEDSIDE AND CONTENT. IT IS A MATTER OF TIME NOW. SHE HAD SECRETIONS LAST NIGHT START SCOP PATCHES TODAY. COMFORTABLE IN NO PAIN, COMATOSE. TERMINAL. (2) Alzheimer disease Current Visit: No Status: Chronic
[2020-12-06] MEDS: HYDROMORPHONE HCL 1 MG/ML INJ IV SCH ×12 (01:55→23:50)
[2020-12-06] MEDS: LORazepam 2 MG/ML VIAL IV SCH ×11 (01:56→22:13)
--- NOTE | 2020-12-06 21:31 | P.PN ---
Subjective Date of Service: 12/06/20 Chief Complaint: HOSPICE CARE FOR BOWEL PERFORATION COMATOSE. MS UMANA CONTINUES TO BREATH RAPIDLY AND IS SEVERELY HYPOXIC. IS AT BEDSIDE AND CONTENT. SHE SHOULD PASS ANY MINUTE. SHE IS SEVERELY HYPOXIC AND PASS ANY TIME. IT IS NOT UNUSUAL FOR SOMEONE WITH GREAT HEART TO CONTINUE FOR DAYS IN COMATOSE CONDITION. Physical Examination - Vital Signs Temperature: 98.1 F Blood Pressure: 81/43 Pulse: 90 Respirations: 18 Pulse Ox (%): 44 - Physical Exam General: Cachectic, Mild distress, Comatose Respiratory: Other (RAPID BREATHING WITH PAUSES) Assessment And Plan - Current Problems (Diagnosis) (1) Bowel perforation Current Visit: No Status: Acute Plan: SHE SHOULD NOT HAVE MORE THAN A COUPLE DAYS TO LIVE. SHE IS ALREADY STARTING TO HAVE RESPIRATORY MOVEMENTS THAT ARE TERMINAL. SHE IS COMATOSE AND PAINFREE. THAT IS THE MAIN CONCERN OF TO KEEP HER PAINFREE. HE IS AT BEDSIDE AND CONTENT. IT IS A MATTER OF TIME NOW. SHE HAD SECRETIONS LAST NIGHT START SCOP PATCHES TODAY. COMFORTABLE IN NO PAIN, COMATOSE. TERMINAL. (2) Alzheimer disease Current Visit: No Status: Chronic
[2020-12-07] MEDS: LORazepam 2 MG/ML VIAL IV SCH ×12 (00:18→22:05)
[2020-12-07] MEDS: HYDROMORPHONE HCL 1 MG/ML INJ IV SCH ×11 (01:30→22:05)
[2020-12-07] MEDS: SCOPOLAMINE HYDROBROMIDE PATCH TD SCH (10:58)
[2020-12-07 20:49] VITALS: BP 61/53; TEMP 97
--- NOTE | 2020-12-07 22:03 | P.PN ---
Subjective Date of Service: 12/07/20 Chief Complaint: HOSPICE CARE FOR BOWEL PERFORATION Subjective: Worsening COMATOSE. MS UMANA CONTINUES TO BREATH RAPIDLY AND IS SEVERELY HYPOXIC. IS AT BEDSIDE AND CONTENT. SHE SHOULD PASS ANY MINUTE. SHE IS SEVERELY HYPOXIC AND PASS ANY TIME. IT IS NOT UNUSUAL FOR SOMEONE WITH GREAT HEART TO CONTINUE FOR DAYS IN COMATOSE CONDITION. OXYGEN ST DOWN TO 35% BP DOWN TO 60 SYTOLIC IT IS MATTER OF HOURS NOW FOR HER TO PASS AWAY. AT BEDSIDE AND EVERY CONTENT. PRAYER SONGS ARE ON. Physical Examination - Vital Signs Temperature: 97 F Blood Pressure: 61/53 Pulse: 106 Respirations: 18 Pulse Ox (%): 35 Assessment And Plan - Current Problems (Diagnosis) (1) Bowel perforation Current Visit: No Status: Acute Plan: SHE SHOULD NOT HAVE MORE THAN A COUPLE DAYS TO LIVE. SHE IS ALREADY STARTING TO HAVE RESPIRATORY MOVEMENTS THAT ARE TERMINAL. SHE IS COMATOSE AND PAINFREE. THAT IS THE MAIN CONCERN OF TO KEEP HER PAINFREE. HE IS AT BEDSIDE AND CONTENT. IT IS A MATTER OF TIME NOW. SHE HAD SECRETIONS LAST NIGHT START SCOP PATCHES TODAY. COMFORTABLE IN NO PAIN, COMATOSE. TERMINAL. (2) Alzheimer disease Current Visit: No Status: Chronic
== END 2020-12-07 22:18 | disposition expired | DRG 951 ==
LOC: 2ND 16:28 → UNDODISIN 12-05 13:31
PROVIDERS: ADMIT Internal Medicine; ATTEND Internal Medicine
DX: Z51.5 Encounter for palliative care (principal); K63.1 Perforation of intestine (nontraumatic); R09.02 Hypoxemia; G30.9 Alzheimer's disease, unspecified; F02.80 Dementia in other diseases classified elsewhere, unspecified severity, without behavioral disturbance, psychotic disturbance, mood disturbance, and anxiety
CPT/HCPCS: J1170; J7799